=== PATIENT | female | born 1935 | race Caucasian/White ===

== ENCOUNTER 2019-04-27 00:43 | Inpatient (IN) | payer MEDICARE ==
[2019-04-27] MEDS ORDERED: Sodium Chloride 0.9% 10 ML Syringe FLUSH PRN (01:02)
[2019-04-27] MEDS: Lactated Ringers 1,000 ML IV SCH ×2 (01:38→22:40)
[2019-04-27] MEDS ORDERED: Phytonadione ORAL 2.5mg/2.5ml Soln Simple Syrup U/D PO ONE (02:29)
--- NOTE | 2019-04-27 02:31 | EDM.PDOC ---
ED HPI GENERAL MEDICAL PROBLEM - General Chief Complaint: Gastrointestinal Problem Stated Complaint: [facility] Time Seen by Provider: 04/27/19 01:01 Source of Information: Reports: Patient, RN Notes Reviewed - History of Present Illness INITIAL COMMENTS - FREE TEXT/NARRATIVE: 83 year-old female is been brought to the emergency department by [facility] for evaluation of rectal bleeding. She is reported to a first started 2 days ago. Yesterday and today there have been multiple episodes of rectal bleeding. The patient is not clear at all on exactly when this started or how many episodes. The limited information we have at this time is from [facility]. On arrival to ED she has no chest or abdominal pain. Nausea or vomiting. She does not feel weak, dizzy lightheaded or short of breath. She is on warfarin in addition to her other medications. She has history of hypertension, hyperlipidemia and dementia. - Related Data Allergies Allergy/AdvReac Type Severity Reaction Status Date / Time No Known Allergies Allergy Verified 04/27/19 00:46 Home Meds: Home Meds Albuterol [Ventolin HFA] 2 puff INH Q6H 04/27/19 [History] Cholecalciferol (Vitamin D3) [Vitamin D3] 1,000 unit PO BID 04/27/19 [History] Diltiazem HCl [Cardizem] 60 mg PO TID 04/27/19 [History] Furosemide [Lasix] 40 mg PO DAILY 04/27/19 [History] Memantine [Namenda] 10 mg PO BID 04/27/19 [History] Metoprolol Tartrate 100 mg PO BID 04/27/19 [History] Multivitamin [Daily Multiple Vitamin] 1 each PO DAILY 04/27/19 [History] Omeprazole 20 mg PO DAILY 04/27/19 [History] Potassium Chloride [Potassium Chloride Solution] 10 meq PO DAILY 04/27/19 [ History] Pravastatin [Pravachol] 20 mg PO BEDTIME 04/27/19 [History] Warfarin [Coumadin] 1.25 mg PO ASDIRECTED 04/27/19 [History] Warfarin [Coumadin] 2.5 mg PO ASDIRECTED 04/27/19 [History] Past Medical History HEENT History: Reports: None Cardiovascular History: Reports: Afib, High Cholesterol, Hypertension, PVD Respiratory History: Reports: COPD Gastrointestinal History: Reports: GERD FIN[employer]ER [employer] History: Reports: None Musculoskeletal History: Reports: None Neurological History: Reports: Alzheimers Disease Psychiatric History: Reports: Dementia Endocrine/Metabolic History: Reports: None Hematologic History: Reports: Anemia, Anticoagulation Therapy, Iron Deficiency Immunologic History: Reports: None Oncologic (Cancer) History: Reports: None Dermatologic History: Reports: None - Infectious Disease History Infectious Disease History: Reports: None - Past Surgical History GI Surgical History: Reports: Other (See Below) Other GI Surgeries/Procedures: Pt has g-tube placed due to severe protein- calorie malnutrition. Female Surgical History: Reports: Other (See Below) Other Female Surgeries/Procedures: Pt states she had one ovary removed, unsure which one. Social & Family History - Tobacco Use Smoking Status *Q: Never Smoker - Caffeine Use Caffeine Use: Reports: Coffee - Recreational Drug Use Recreational Drug Use: No ED ROS GENERAL - Review of Systems Review Of Systems: See Below Constitutional: Denies: Fever, Diaphoresis HEENT: Denies: Throat Pain Respiratory: Denies: Shortness of Breath Cardiovascular: Denies: Chest Pain GI/Abdominal: Reports: Hematochezia, Melena. Denies: Abdominal Pain, Nausea, Vomiting Musculoskeletal: Reports: No Symptoms Skin: Reports: No Symptoms Neurological: Reports: No Symptoms ED EXAM, GI/ABD - Physical Exam Exam: See Below Exam Limited By: Other (Patient does have dementia, she is not able to give an accurate history but does answer simple questions) General Appearance: Alert, No Apparent Distress Throat/Mouth: Normal Inspection, Normal Oropharynx Head: Atraumatic Neck: Supple, Other (No JVD) Respiratory/Chest: No Respiratory Distress, Lungs Clear, Normal Breath Sounds Cardiovascular: Regular Rate, Rhythm GI/Abdominal Exam: Soft, Non-Tender. No: Guarding Rectal (Female) Exam: Heme + Stool (Small amount dark maroon colored blood present, no mass or unusual tenderness palpable) Extremities: Normal Inspection. No: Leg Pain, Redness Neurological: Alert, No Motor/Sensory Deficits, Other (Mild confusion, strongly appears to have short-term memory deficit) Skin Exam: Warm, Dry, Normal Color, No Rash EKG INTERPRETATION EKG Date: 04/27/19 Rhythm: NSR [place]: Normal P-Wave: Present QRS: LBBB (Q waves present V2 and V3) Course - Vital Signs Last Recorded V/S: Last Vital Signs Temp 96.9 F 04/27/19 00:44 Pulse 82 04/27/19 00:44 Resp 16 04/27/19 00:44 BP 139/72 04/27/19 00:44 Pulse Ox 95 04/27/19 01:11 Orthostatic Blood Pressure [ 111/60 Standing] Orthostatic Blood Pressure [ 139/68 Supine] - Orders/Labs/Meds Orders: Active Orders 24 hr Category Date Time Status EKG 12 Lead [EKG Documentation Completion] [] STAT Care 04/27/19 01:11 Active Hemoccult [Fecal Occult Blood Collection] [] Care 04/27/19 01:11 Active ASDIRECTED Orthostatic Vital Signs [RC] ASDIRECTED Care 04/27/19 01:11 Active Peripheral IV Care [] . DIRECTED Care 04/27/19 01:03 Active TYPE AND SCREEN [BBK] Stat Lab 04/27/19 01:15 Received Lactated Ringers [Ringers, Lactated] 1,000 ml Med 04/27/19 01:15 Active IV ASDIRECTED Pantoprazole [ProTONIX IV] 40 mg Med 04/27/19 02:50 Active Sodium Chloride 0.9% [Normal Saline] 100 ml IV ONETIME Sodium Chloride 0.9% [Saline Flush] Med 04/27/19 01:02 Active 10 ml FLUSH ASDIRECTED PRN Peripheral IV Insertion Adult [OM.PC] Stat Oth 04/27/19 01:02 Ordered Medication Orders Lactated Ringer's (Ringers, Lactated) 1,000 mls @ 50 mls/hr IV ASDIRECTED [facility] Last Admin: 04/27/19 01:38 Dose: 50 mls/hr Pantoprazole Sodium 40 mg/ (Sodium Chloride) 100 mls @ 200 mls/hr IV ONETIME ONE Stop: 04/27/19 03:19 Sodium Chloride (Saline Flush) 10 ml FLUSH ASDIRECTED PRN PRN Reason: Keep Vein Open Last Admin: 04/27/19 01:39 Dose: 10 ml Labs: Laboratory Tests 04/27/19 04/27/19 04/27/19 Range/Units 01:15 01:15 01:15 WBC 12.97 H (3.98-10.04) K/mm3 RBC 4.44 (3.98-5.22) M/mm3 Hgb 11.6 (11.2-15.7) gm/dl Hct 38.8 (34.1-44.9) % MCV 87.4 (79.4-94.8) fl MCH 26.1 (25.6-32.2) pg MCHC 29.9 L (32.2-35.5) g/dl RDW Std Deviation 54.5 H (36.4-46.3) fL Plt Count 292 (182-369) K/mm3 MPV 10.8 (9.4-12.3) fl Neut % (Auto) 76.0 H (34.0-71.1) % Lymph % (Auto) 15.2 L (19.3-51.7) % [place] % (Auto) 6.9 (4.7-12.5) % Eos % (Auto) 1.2 (0.7-5.8) Baso % (Auto) 0.2 (0.1-1.2) % Neut # (Auto) 9.86 H (1.56-6.13) K/mm3 Lymph # (Auto) 1.97 (1.18-3.74) K/mm3 [place] # (Auto) 0.90 H (0.24-0.36) K/mm3 Eos # (Auto) 0.16 (0.04-0.36) K/mm3 Baso # (Auto) 0.02 (0.01-0.08) K/mm3 Manual Slide Review Abnormal smear PT 21.9 H (9.7-12.0) SECONDS INR 2.10 Sodium 140 (136-145) mEq/L Potassium 4.6 (3.5-5.1) mEq/L Chloride 101 (98-107) mEq/L Carbon Dioxide 36 H (21-32) mEq/L Anion Gap 7.6 (5-15) BUN 45 H (7-18) mg/dL Creatinine 1.1 H (0.55-1.02) mg/dL Est Cr Clr Drug Dosing 28.32 mL/min Estimated GFR (MDRD) 48 (>60) mL/min BUN/Creatinine Ratio 40.9 H (14-18) Glucose 112 (83-115) mg/dL Calcium 9.4 (8.5-10.1) mg/dL Total Bilirubin 0.3 (0.2-1.0) mg/dL AST 15 (15-37) U/L ALT 23 (14-59) U/L Alkaline Phosphatase 135 H (46-116) U/L Total Protein 7.2 (6.4-8.2) g/dl Albumin 2.8 L (3.4-5.0) g/dl Globulin 4.4 gm/dL Albumin/Globulin Ratio 0.6 L (1-2) Meds: Medications Generic Name Dose Route Start Last Admin Trade Name Freq PRN Reason Stop Dose Admin Lactated Ringer's 1,000 mls @ 50 mls/hr 04/27/19 01:15 04/27/19 01:38 Ringers, Lactated IV 50 mls/hr ASDIRECTED ANIA Administration Pantoprazole Sodium 40 mg/ 100 mls @ 200 mls/hr 04/27/19 02:50 Sodium Chloride IV 04/27/19 03:19 ONETIME ONE Sodium Chloride 10 ml 04/27/19 01:02 04/27/19 01:39 Saline Flush FLUSH 10 ml ASDIRECTED PRN Administration Keep Vein Open Discontinued Medications Generic Name Dose Route Start Last Admin Trade Name Freq PRN Reason Stop Dose Admin Phytonadione 5 mg 04/27/19 02:29 04/27/19 02:51 Aquamephyton PO 04/27/19 02:30 5 mg ONETIME ONE Administration - Re-Assessments/Exams Free Text/Narrative Re-Assessment/Exam: 04/27/19 02:42. Hemoglobin is come back at 11.6, INR is 2.10. Creatinine 1.1, potassium 4.6, other chemistries relatively normal. She has been resting comfortably. Blood pressures been running in the 120s and 130s systolic. We did check orthosis and her blood pressure did drop from 1 3968 lying to 111/60 standing heart rate increased from 82 lying to 87 standing. As noted on rectal exam was dark maroon colored blood. She did have one episode shortly after arrival but nothing further. She is resting comfortably with no pain or other apparent distress. Looking at her [facility] records she is DNR/DNI. Will admit to Med Surg Telemetry for further eval and treatment. Protonix 40 mg IV has been ordered along with Vit K 5 mg PO. Type and screen also ordered with initial labs. Departure - Departure Time of Disposition: 02:46 Disposition: Admitted As Inpatient 67 Condition: Serious Clinical Impression: Rectal bleeding, Elevated INR - Discharge Information Referrals: Dakota Huertas MD [Primary Care Provider] - Forms: ED Department Discharge - My Orders Last 24 Hours: My Active Orders 04/27/19 01:02 Sodium Chloride 0.9% [Saline Flush] 10 ml FLUSH ASDIRECTED PRN Peripheral IV Insertion Adult [OM.PC] Stat 04/27/19 01:03 Peripheral IV Care [RC] . DIRECTED 04/27/19 01:11 EKG 12 Lead [EKG Documentation Completion] [RC] STAT Hemoccult [Fecal Occult Blood Collection] [RC] ASDIRECTED Orthostatic Vital Signs [RC] ASDIRECTED 04/27/19 01:15 TYPE AND SCREEN [BBK] Stat Lactated Ringers [Ringers, Lactated] 1,000 ml IV ASDIRECTED 04/27/19 02:50 Pantoprazole [ProTONIX IV] 40 mg Sodium Chloride 0.9% [Normal Saline] 100 ml IV ONETIME - Assessment/Plan Last 24 Hours: My Active Orders 04/27/19 01:02 Sodium Chloride 0.9% [Saline Flush] 10 ml FLUSH ASDIRECTED PRN Peripheral IV Insertion Adult [OM.PC] Stat 04/27/19 01:03 Peripheral IV Care [RC] . DIRECTED 04/27/19 01:11 EKG 12 Lead [EKG Documentation Completion] [RC] STAT Hemoccult [Fecal Occult Blood Collection] [RC] ASDIRECTED Orthostatic Vital Signs [RC] ASDIRECTED 04/27/19 01:15 TYPE AND SCREEN [BBK] Stat Lactated Ringers [Ringers, Lactated] 1,000 ml IV ASDIRECTED 04/27/19 02:50 Pantoprazole [ProTONIX IV] 40 mg Sodium Chloride 0.9% [Normal Saline] 100 ml IV ONETIME
[2019-04-27] MEDS ORDERED: Pantoprazole 40 MG in Sodium Chloride 0.9% 100 ML IV ONE (02:50)
[2019-04-27] MEDS ORDERED: Pantoprazole 40 MG Vial IVPUSH ONE (07:00)
--- NOTE | 2019-04-27 07:49 | PCM.HP.2 ---
H&P History of Present Illness - General Date of Service: 04/27/19 Admit Problem/Dx: Admission Diagnosis/Problem Admission Diagnosis/Problem Rectal hemorrhage Source of Information: Patient, Old Records, Provider, RN Notes Reviewed History Limitations: Reports: Altered Mental Status - History of Present Illness Initial Comments - Free Text/Narative: This is an 83 yo elderly white female with past medical hx/o HTN, HLD, PVD, COPD , GERD, Alzheimer's Disease, and Malnutrition S/p G-Tube Placement who came in to ED last night due to 2 day hx/o GI bleed. She has had multiple episode of rectal bleeding yesterday. Per secondary sources, she has no associated symptoms. She denies any hx/o hemorrhoids, diverticulosis or GI bleed in the past. She denies having been scope in the past. She carries a hx/o CHERELLE and she takes Warfarin for atrial fibrillation. Patient is a poor historian. HPI was obtained from combination of multiple sources. Her initial work up in ED last night showed a CBC remarkable for WBC of 12.97, MCHC of 29.9, RDW of 54.5, Neutrophils of 79% and Lymphocytes of 15.2%. Her INR was 2.10. Her Chemistry was significant for CO2 of 36, BUN of 45, Cr of 1.1, Alk Phos of 135, and Albumin of 2.8. She was admitted overnight for further work up of GI Bleed. - Related Data Allergies/Adverse Reactions: Allergies Allergy/AdvReac Type Severity Reaction Status Date / Time No Known Allergies Allergy Verified 04/27/19 00:46 Home Medications: Home Meds Albuterol [Ventolin HFA] 2 puff INH Q6H 04/27/19 [History] Cholecalciferol (Vitamin D3) [Vitamin D3] 1,000 unit PO BID 04/27/19 [History] Diltiazem HCl [Cardizem] 60 mg PO TID 04/27/19 [History] Furosemide [Lasix] 40 mg PO DAILY 04/27/19 [History] Lactose-Reduced Food/Fiber [Isosource 1.5 [place] Tube Feed] 04/27/19 [History] Memantine [Namenda] 10 mg PO BID 04/27/19 [History] Metoprolol Tartrate 1.5 tab PO BID 04/27/19 [History] Multivitamin [Daily Multiple Vitamin] 1 each PO DAILY 04/27/19 [History] Omeprazole 20 mg PO DAILY 04/27/19 [History] Potassium Chloride [Potassium Chloride Solution] 10 meq PO DAILY 04/27/19 [ History] Pravastatin [Pravachol] 20 mg PO BEDTIME 04/27/19 [History] Warfarin [Coumadin] 1.25 mg PO ASDIRECTED 04/27/19 [History] Warfarin [Coumadin] 2.5 mg PO ASDIRECTED 04/27/19 [History] Past Medical History HEENT History: Reports: None Cardiovascular History: Reports: Afib, High Cholesterol, Hypertension, PVD Respiratory History: Reports: COPD Gastrointestinal History: Reports: GERD 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 Musculoskeletal History: Reports: None Neurological History: Reports: Alzheimers Disease Psychiatric History: Reports: Dementia Endocrine/Metabolic History: Reports: None Hematologic History: Reports: Anemia, Anticoagulation Therapy, Iron Deficiency Immunologic History: Reports: None Oncologic (Cancer) History: Reports: None Dermatologic History: Reports: None - Infectious Disease History Infectious Disease History: Reports: None - Past Surgical History GI Surgical History: Reports: Other (See Below) Other GI Surgeries/Procedures: Pt has g-tube placed due to severe protein- calorie malnutrition. Female Surgical History: Reports: Other (See Below) Other Female Surgeries/Procedures: Pt states she had one ovary removed, unsure which one. Social & Family History - Family History Family Medical History: Noncontributory - Tobacco Use Smoking Status *Q: Never Smoker - Caffeine Use Caffeine Use: Reports: Coffee - Recreational Drug Use Recreational Drug Use: No H&P Review of Systems - Review of Systems: Review Of Systems: ROS reveals no pertinent complaints other than HPI. Exam - Exam Exam: See Below - Vital Signs Vital Signs: Last Vital Signs Temp 36.2 C 04/27/19 03:34 Pulse 79 04/27/19 04:02 Resp 20 04/27/19 03:34 BP 129/63 04/27/19 03:34 Pulse Ox 87 L 04/27/19 06:25 Orthostatic Blood Pressure [ 111/60 Standing] Orthostatic Blood Pressure [ 139/68 Supine] Weight: 59.829 kg - Exam General: Alert, Cooperative, Mild Distress HEENT: Conjunctiva Clear, EACs Clear, Hearing Intact, Mucosa Moist & [place], Nares Patent, Posterior Pharynx Clear, Pupils Equal Neck: Supple, Trachea Midline Lungs: Normal Respiratory Effort, Decreased Breath Sounds Cardiovascular: Regular Rate, Regular Rhythm GI/Abdominal Exam: Normal Bowel Sounds, Soft, Non-Tender, No Organomegaly, No Distention, No Abnormal Bruit, Other (gastric tube) (Female) Exam: Deferred Rectal (Female) Exam: Deferred Back Exam: Normal Inspection, Decreased Range of Motion Extremities: Normal Inspection, Normal Range of Motion, Non-Tender, No Pedal Edema, Normal Capillary Refill Peripheral Pulses: 2+: Posterior Tibial (L), Posterior Tibial (R), Dorsalis Pedis (L), Dorsalis Pedis (R) Skin: Warm, Dry, Intact Neuro Extensive - Mental Status: Normal Cognition Neuro Extensive - Motor, Sensory, Reflexes: CN II-XII Intact (limited but grossly intact), Abnormal Gait Psychiatric: Alert, Normal Affect, Normal Mood - Patient Data Lab Results Last 24 hrs: Laboratory Results - last 24 hr 04/27/19 04/27/19 04/27/19 Range/Units 01:15 01:15 01:15 WBC 12.97 H (3.98-10.04) K/mm3 RBC 4.44 (3.98-5.22) M/mm3 Hgb 11.6 (11.2-15.7) gm/dl Hct 38.8 (34.1-44.9) % MCV 87.4 (79.4-94.8) fl MCH 26.1 (25.6-32.2) pg MCHC 29.9 L (32.2-35.5) g/dl RDW Std Deviation 54.5 H (36.4-46.3) fL Plt Count 292 (182-369) K/mm3 MPV 10.8 (9.4-12.3) fl Neut % (Auto) 76.0 H (34.0-71.1) % Lymph % (Auto) 15.2 L (19.3-51.7) % [place] % (Auto) 6.9 (4.7-12.5) % Eos % (Auto) 1.2 (0.7-5.8) Baso % (Auto) 0.2 (0.1-1.2) % Neut # (Auto) 9.86 H (1.56-6.13) K/mm3 Lymph # (Auto) 1.97 (1.18-3.74) K/mm3 [place] # (Auto) 0.90 H (0.24-0.36) K/mm3 Eos # (Auto) 0.16 (0.04-0.36) K/mm3 Baso # (Auto) 0.02 (0.01-0.08) K/mm3 Manual Slide Review Abnormal smear PT 21.9 H (9.7-12.0) SECONDS INR 2.10 Sodium 140 (136-145) mEq/L Potassium 4.6 (3.5-5.1) mEq/L Chloride 101 (98-107) mEq/L Carbon Dioxide 36 H (21-32) mEq/L Anion Gap 7.6 (5-15) BUN 45 H (7-18) mg/dL Creatinine 1.1 H (0.55-1.02) mg/dL Est Cr Clr Drug Dosing 28.32 mL/min Estimated GFR (MDRD) 48 (>60) mL/min BUN/Creatinine Ratio 40.9 H (14-18) Glucose 112 (83-115) mg/dL Calcium 9.4 (8.5-10.1) mg/dL Total Bilirubin 0.3 (0.2-1.0) mg/dL AST 15 (15-37) U/L ALT 23 (14-59) U/L Alkaline Phosphatase 135 H (46-116) U/L Total Protein 7.2 (6.4-8.2) g/dl Albumin 2.8 L (3.4-5.0) g/dl Globulin 4.4 gm/dL Albumin/Globulin Ratio 0.6 L (1-2) MRSA (PCR) 04/27/19 Range/Units 04:13 WBC (3.98-10.04) K/mm3 RBC (3.98-5.22) M/mm3 Hgb (11.2-15.7) gm/dl Hct (34.1-44.9) % MCV (79.4-94.8) fl MCH (25.6-32.2) pg MCHC (32.2-35.5) g/dl RDW Std Deviation (36.4-46.3) fL Plt Count (182-369) K/mm3 MPV (9.4-12.3) fl Neut % (Auto) (34.0-71.1) % Lymph % (Auto) (19.3-51.7) % [place] % (Auto) (4.7-12.5) % Eos % (Auto) (0.7-5.8) Baso % (Auto) (0.1-1.2) % Neut # (Auto) (1.56-6.13) K/mm3 Lymph # (Auto) (1.18-3.74) K/mm3 [place] # (Auto) (0.24-0.36) K/mm3 Eos # (Auto) (0.04-0.36) K/mm3 Baso # (Auto) (0.01-0.08) K/mm3 Manual Slide Review PT (9.7-12.0) SECONDS INR Sodium (136-145) mEq/L Potassium (3.5-5.1) mEq/L Chloride (98-107) mEq/L Carbon Dioxide (21-32) mEq/L Anion Gap (5-15) BUN (7-18) mg/dL Creatinine (0.55-1.02) mg/dL Est Cr Clr Drug Dosing mL/min Estimated GFR (MDRD) (>60) mL/min BUN/Creatinine Ratio (14-18) Glucose (83-115) mg/dL Calcium (8.5-10.1) mg/dL Total Bilirubin (0.2-1.0) mg/dL AST (15-37) U/L ALT (14-59) U/L Alkaline Phosphatase (46-116) U/L Total Protein (6.4-8.2) g/dl Albumin (3.4-5.0) g/dl Globulin gm/dL Albumin/Globulin Ratio (1-2) MRSA (PCR) Negative Result Diagrams: 04/28/19 10:05 04/28/19 05:10 EKG INTERPRETATION EKG Date: 04/27/19 Rhythm: NSR [place]: Normal P-Wave: Present QRS: LBBB EKG Interpretation Comments: Q waves in leads V2-V3 Problem List Initiated/Reviewed/Updated: Yes Orders Last 24hrs: Active Orders 24 hr Category Date Time Status Admission Status [Patient Status] [ADT] Routine ADT 04/27/19 03:07 Active Orthostatic Vital Signs [RC] ASDIRECTED Care 04/27/19 01:11 Active Oxygen Therapy [RC] ASDIRECTED Care 04/27/19 06:25 Active Peripheral IV Care [RC] Q2H Care 04/27/19 01:03 Active Up With Assistance [RC] ASDIRECTED Care 04/27/19 04:37 Active NPO [Nothing Per Oral Diet] [DIET] Diet 04/27/19 Breakfast Active TYPE AND SCREEN [BBK] Stat Lab 04/27/19 01:15 Received Lactated Ringers [Ringers, Lactated] 1,000 ml Med 04/27/19 01:15 Active IV ASDIRECTED Sodium Chloride 0.9% [Saline Flush] Med 04/27/19 01:02 Active 10 ml FLUSH ASDIRECTED PRN Peripheral IV Insertion Adult [OM.PC] Stat Oth 04/27/19 01:02 Ordered Code Status [Resuscitation Status] Routine Resus Stat 04/27/19 04:36 Ordered Medication Orders Lactated Ringer's (Ringers, Lactated) 1,000 mls @ 50 mls/hr IV ASDIRECTED ANIA Last Admin: 04/27/19 01:38 Dose: 50 mls/hr Sodium Chloride (Saline Flush) 10 ml FLUSH ASDIRECTED PRN PRN Reason: Keep Vein Open Last Admin: 04/27/19 01:39 Dose: 10 ml Assessment/Plan Comment:: Assessment: Acute: Rectal Bleeding - Started a couple of days ago - Had multiple episodes yesterday - No hx/o hematemesis, GI Bleed in the past, Hemorrhoids or Diverticulosis - No endoscopy in the past--> patient is a poor historian - Last GI Bleed: this morning with maroon colored stool - On Warfarin due to PAFIB - Hgb is 11.6 - INR is 2.10 and was given low dose of Vit K in ED - Hold warfarin and will consult general surgery - H/H Q6H Mild Renal Insufficiency - BUN of 45 and Cr of 1.1 - Likely from rectal bleed - Monitor Chronic: HTN, HLD, PVD, COPD, PAFIB, GERD, CHERELLE, Alzheimer's Disease, Malnutrition S/p G-Tube Placement Plan: Admitted overnight to [facility] Resume Home Meds NPO until after GS eval IV Hydration DVT/GI Prophylaxis Fall Precautions Dr. Guerra consult SW/CM for D/c planning Daily INR Code Status: DNR/DNI Additional orders as above - Mortality Measure Prognosis:: Good
[2019-04-27] MEDS ORDERED: Acetaminophen/HYDROcodone 325-5 MG Tab PO PRN (08:45)
[2019-04-27] MEDS ORDERED: Albuterol/Ipratropium 3.0-0.5 MG/3 ML Neb Soln NEB PRN (08:45)
[2019-04-27] MEDS ORDERED: Docusate Sodium 100 MG Cap PO PRN (08:45)
[2019-04-27] MEDS ORDERED: Promethazine 6.25 MG in Sodium Chloride 0.9% 50 ML IV PRN (08:45)
[2019-04-27] MEDS ORDERED: Polyethylene Glycol 3350 Powder 17 GM Packet PO PRN (08:45)
[2019-04-27] MEDS ORDERED: Albuterol 6.7 GM Inhaler INH PRN (08:45)
[2019-04-27] MEDS ORDERED: Acetaminophen 325 MG Tab PO PRN (08:45)
[2019-04-27] MEDS ORDERED: Bisacodyl 5 MG Tab PO PRN (08:45)
[2019-04-27] MEDS ORDERED: Pantoprazole 40 MG Vial IV SCH (09:00)
[2019-04-27] MEDS ORDERED: Pantoprazole 40 MG Tab.CR PO SCH (09:00)
[2019-04-27] MEDS: Potassium Chloride 10% 20 MEQ/15 ML Soln 15 ML UD Cup PO SCH (10:51)
[2019-04-27] MEDS: Metoprolol Tartrate 100 MG Tab PO SCH ×2 (10:52→21:16)
[2019-04-27] MEDS: Furosemide 40 MG Tab PO SCH (10:52)
[2019-04-27] MEDS: Cholecalciferol (Vitamin D3) 25 MCG Tab PO SCH ×2 (10:55→21:14)
[2019-04-27] MEDS: Multivitamins,Therapeutic Tab PO SCH (10:55)
[2019-04-27] MEDS: Pantoprazole 40 MG Vial IVPUSH SCH ×2 (10:57→21:11)
[2019-04-27] MEDS: Diltiazem IR 60 MG Tab PO SCH ×3 (10:58→21:15)
[2019-04-27] MEDS ORDERED: Sodium Chloride 0.9% 250 ML ONE ×2 (11:26→22:09)
--- NOTE | 2019-04-27 11:46 | PCM.CONS ---
H&P History of Present Illness - General Date of Service: 04/27/19 Admit Problem/Dx: Admission Diagnosis/Problem Admission Diagnosis/Problem Rectal hemorrhage Source of Information: Old Records, Provider, RN History Limitations: Reports: Altered Mental Status - History of Present Illness Initial Comments - Free Text/Narative: I was asked in consultation to evaluate the patient for rectal bleeding. The patient is on Warfarin for Afib and was noted to have Dark colored bloody stool 3 days ago. She had two more similar stools and was transferred to the hospital on 04/26. Stool are dark blood. She had dementia and therefore a poor historian but per report she had been otherwise without any abdominal complaints. The patient has a degree of dysphagia and had a YAMIL button G-tube for feeds. She had had prior abdominal laparotomy, she is unsure what was done. In the ED she had another bloody bowel movement and one more overnight. Her vitals have been otherwise stable with Hgb on 11.6 and INR of 2.1 on 04/26 at 0330. Per report from Dr. Bond, the patient received a dose of Vit K. Onset of Symptoms: Reports: Unknown/Unsure Duration of Symptoms: Reports: Day(s): (3) Location: Reports: Other (rectum) Quality: Reports: Same as Previous Episode Severity: Moderate Improves with: Reports: None Worsens with: Reports: None Associated Symptoms: Reports: No Other Symptoms - Related Data Allergies/Adverse Reactions: Allergies Allergy/AdvReac Type Severity Reaction Status Date / Time No Known Allergies Allergy Verified 04/27/19 00:46 Home Medications: Home Meds Albuterol [Ventolin HFA] 2 puff INH Q6H 04/27/19 [History] Cholecalciferol (Vitamin D3) [Vitamin D3] 1,000 unit PO BID 04/27/19 [History] Diltiazem HCl [Cardizem] 60 mg PO TID 04/27/19 [History] Furosemide [Lasix] 40 mg PO DAILY 04/27/19 [History] Lactose-Reduced Food/Fiber [Isosource 1.5 Carrillo Tube Feed] 04/27/19 [History] Memantine [Namenda] 10 mg PO BID 04/27/19 [History] Metoprolol Tartrate 1.5 tab PO BID 04/27/19 [History] Multivitamin [Daily Multiple Vitamin] 1 each PO DAILY 04/27/19 [History] Omeprazole 20 mg PO DAILY 04/27/19 [History] Potassium Chloride [Potassium Chloride Solution] 10 meq PO DAILY 04/27/19 [ History] Pravastatin [Pravachol] 20 mg PO BEDTIME 04/27/19 [History] Warfarin [Coumadin] 1.25 mg PO ASDIRECTED 04/27/19 [History] Warfarin [Coumadin] 2.5 mg PO ASDIRECTED 04/27/19 [History] Past Medical History HEENT History: Reports: None Cardiovascular History: Reports: Afib, High Cholesterol, Hypertension, PVD Respiratory History: Reports: COPD Gastrointestinal History: Reports: GERD 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 Musculoskeletal History: Reports: None Neurological History: Reports: Alzheimers Disease Psychiatric History: Reports: Dementia Endocrine/Metabolic History: Reports: None Hematologic History: Reports: Anemia, Anticoagulation Therapy, Iron Deficiency Immunologic History: Reports: None Oncologic (Cancer) History: Reports: None Dermatologic History: Reports: None - Infectious Disease History Infectious Disease History: Reports: None - Past Surgical History GI Surgical History: Reports: Other (See Below) Other GI Surgeries/Procedures: Pt has g-tube placed due to severe protein- calorie malnutrition. Female Surgical History: Reports: Other (See Below) Other Female Surgeries/Procedures: Pt states she had one ovary removed, unsure which one. Social & Family History - Family History Family Medical History: Noncontributory - Tobacco Use Smoking Status *Q: Never Smoker - Caffeine Use Caffeine Use: Reports: Coffee - Recreational Drug Use Recreational Drug Use: No H&P Review of Systems - Review of Systems: Review Of Systems: See Below Free Text/Narrative: Patient unable to provide reliable ROS due to altered mental status Exam - Exam Exam: See Below - Vital Signs Vital Signs: Last Vital Signs Temp 97.0 F 04/27/19 09:10 Pulse 95 04/27/19 10:52 Resp 18 04/27/19 09:10 BP 129/62 04/27/19 10:52 Pulse Ox 98 04/27/19 09:10 Orthostatic Blood Pressure [ 111/60 Standing] Orthostatic Blood Pressure [ 139/68 Supine] Weight: 59.829 kg - Exam Quality Assessment: Supplemental Oxygen General: Alert, Cooperative, Other (Not oriented and does not know where she is or why she is here) HEENT: Conjunctiva Clear Lungs: Clear to Auscultation, Normal Respiratory Effort Cardiovascular: Regular Rate, Regular Rhythm, Normal S1, Normal S2 GI/Abdominal Exam: Normal Bowel Sounds, Soft, No Organomegaly, No Distention, No Mass, Pelvis Stable, Other (mild tednerness on the left lower quadrant) (Female) Exam: Deferred Rectal (Female) Exam: Normal Rectal Tone, Bloody Stool, Hemorrhoids (None) - Patient Data Lab Results Last 24 hrs: Laboratory Results - last 24 hr 04/27/19 04/27/19 04/27/19 Range/Units 01:15 01:15 01:15 WBC 12.97 H (3.98-10.04) K/mm3 RBC 4.44 (3.98-5.22) M/mm3 Hgb 11.6 (11.2-15.7) gm/dl Hct 38.8 (34.1-44.9) % MCV 87.4 (79.4-94.8) fl MCH 26.1 (25.6-32.2) pg MCHC 29.9 L (32.2-35.5) g/dl RDW Std Deviation 54.5 H (36.4-46.3) fL Plt Count 292 (182-369) K/mm3 MPV 10.8 (9.4-12.3) fl Neut % (Auto) 76.0 H (34.0-71.1) % Lymph % (Auto) 15.2 L (19.3-51.7) % [place] % (Auto) 6.9 (4.7-12.5) % Eos % (Auto) 1.2 (0.7-5.8) Baso % (Auto) 0.2 (0.1-1.2) % Neut # (Auto) 9.86 H (1.56-6.13) K/mm3 Lymph # (Auto) 1.97 (1.18-3.74) K/mm3 [place] # (Auto) 0.90 H (0.24-0.36) K/mm3 Eos # (Auto) 0.16 (0.04-0.36) K/mm3 Baso # (Auto) 0.02 (0.01-0.08) K/mm3 Manual Slide Review Abnormal smear PT 21.9 H (9.7-12.0) SECONDS INR 2.10 Sodium 140 (136-145) mEq/L Potassium 4.6 (3.5-5.1) mEq/L Chloride 101 (98-107) mEq/L Carbon Dioxide 36 H (21-32) mEq/L Anion Gap 7.6 (5-15) BUN 45 H (7-18) mg/dL Creatinine 1.1 H (0.55-1.02) mg/dL Est Cr Clr Drug Dosing 28.32 mL/min Estimated GFR (MDRD) 48 (>60) mL/min BUN/Creatinine Ratio 40.9 H (14-18) Glucose 112 (83-115) mg/dL Calcium 9.4 (8.5-10.1) mg/dL Total Bilirubin 0.3 (0.2-1.0) mg/dL AST 15 (15-37) U/L ALT 23 (14-59) U/L Alkaline Phosphatase 135 H (46-116) U/L Total Protein 7.2 (6.4-8.2) g/dl Albumin 2.8 L (3.4-5.0) g/dl Globulin 4.4 gm/dL Albumin/Globulin Ratio 0.6 L (1-2) MRSA (PCR) Blood Type Gel Antibody Screen 04/27/19 04/27/19 04/27/19 Range/Units 01:15 04:13 09:20 WBC (3.98-10.04) K/mm3 RBC (3.98-5.22) M/mm3 Hgb (11.2-15.7) gm/dl Hct (34.1-44.9) % MCV (79.4-94.8) fl MCH (25.6-32.2) pg MCHC (32.2-35.5) g/dl RDW Std Deviation (36.4-46.3) fL Plt Count (182-369) K/mm3 MPV (9.4-12.3) fl Neut % (Auto) (34.0-71.1) % Lymph % (Auto) (19.3-51.7) % [place] % (Auto) (4.7-12.5) % Eos % (Auto) (0.7-5.8) Baso % (Auto) (0.1-1.2) % Neut # (Auto) (1.56-6.13) K/mm3 Lymph # (Auto) (1.18-3.74) K/mm3 [place] # (Auto) (0.24-0.36) K/mm3 Eos # (Auto) (0.04-0.36) K/mm3 Baso # (Auto) (0.01-0.08) K/mm3 Manual Slide Review PT 23.7 H (9.7-12.0) SECONDS INR 2.28 Sodium (136-145) mEq/L Potassium (3.5-5.1) mEq/L Chloride (98-107) mEq/L Carbon Dioxide (21-32) mEq/L Anion Gap (5-15) BUN (7-18) mg/dL Creatinine (0.55-1.02) mg/dL Est Cr Clr Drug Dosing mL/min Estimated GFR (MDRD) (>60) mL/min BUN/Creatinine Ratio (14-18) Glucose (83-115) mg/dL Calcium (8.5-10.1) mg/dL Total Bilirubin (0.2-1.0) mg/dL AST (15-37) U/L ALT (14-59) U/L Alkaline Phosphatase (46-116) U/L Total Protein (6.4-8.2) g/dl Albumin (3.4-5.0) g/dl Globulin gm/dL Albumin/Globulin Ratio (1-2) MRSA (PCR) Negative Blood Type A POSITIVE Gel Antibody Screen Negative 04/27/19 Range/Units 11:18 WBC (3.98-10.04) K/mm3 RBC (3.98-5.22) M/mm3 Hgb 10.7 L (11.2-15.7) gm/dl Hct 36.0 (34.1-44.9) % MCV (79.4-94.8) fl MCH (25.6-32.2) pg MCHC (32.2-35.5) g/dl RDW Std Deviation (36.4-46.3) fL Plt Count (182-369) K/mm3 MPV (9.4-12.3) fl Neut % (Auto) (34.0-71.1) % Lymph % (Auto) (19.3-51.7) % [place] % (Auto) (4.7-12.5) % Eos % (Auto) (0.7-5.8) Baso % (Auto) (0.1-1.2) % Neut # (Auto) (1.56-6.13) K/mm3 Lymph # (Auto) (1.18-3.74) K/mm3 [place] # (Auto) (0.24-0.36) K/mm3 Eos # (Auto) (0.04-0.36) K/mm3 Baso # (Auto) (0.01-0.08) K/mm3 Manual Slide Review PT (9.7-12.0) SECONDS INR Sodium (136-145) mEq/L Potassium (3.5-5.1) mEq/L Chloride (98-107) mEq/L Carbon Dioxide (21-32) mEq/L Anion Gap (5-15) BUN (7-18) mg/dL Creatinine (0.55-1.02) mg/dL Est Cr Clr Drug Dosing mL/min Estimated GFR (MDRD) (>60) mL/min BUN/Creatinine Ratio (14-18) Glucose (83-115) mg/dL Calcium (8.5-10.1) mg/dL Total Bilirubin (0.2-1.0) mg/dL AST (15-37) U/L ALT (14-59) U/L Alkaline Phosphatase (46-116) U/L Total Protein (6.4-8.2) g/dl Albumin (3.4-5.0) g/dl Globulin gm/dL Albumin/Globulin Ratio (1-2) MRSA (PCR) Blood Type Gel Antibody Screen Result Diagrams: 04/27/19 11:18 04/27/19 01:15 Consult PN Assessment/Plan Problem List Initiated/Reviewed/Updated: No My Orders Last 24 Hours: My Active Orders 04/27/19 09:57 Transfuse Fresh Frozen Plasma [COMM] Routine 04/27/19 10:00 Pantoprazole [ProTONIX IV] 40 mg IVPUSH Q12H Plan: Rectal bleeding: YAMIL tube aspirated and aspirate was clear, low suspicion for UGI bleeding. Rectal exam showed dark blood. Plan - Continue Q6hr H/H - Start Q6hr or Q8hr INR - Administer 2 U FFP to normalize INR - 40 mg IV protonix BID - Continue fluid resuscitation I anticipate that the bleeding may stop once INR normalizes. We will continue to monitor closely.
[2019-04-27] MEDS: Simvastatin 10 MG Tab PO SCH (21:14)
[2019-04-27] MEDS ORDERED: Sodium Chloride 0.9% 250 ML IV SCH (22:15)
[2019-04-28] MEDS ORDERED: Polyethylene Glycol/Electrolytes 4,000 ML Bottle PO ONE
--- NOTE | 2019-04-28 07:50 | PCM.PN ---
- General Info Date of Service: 04/28/19 Admission Dx/Problem (Free Text): Admission Diagnosis/Problem Admission Diagnosis/Problem Rectal hemorrhage Subjective Update: Follow up Functional Status: Reports: Pain Controlled, Tolerating Diet, Urinating - Review of Systems General: Denies: Fever, Weakness, Fatigue, Malaise, Chills HEENT: Reports: No Symptoms Pulmonary: Denies: Shortness of Breath Cardiovascular: Denies: Chest Pain, Dyspnea on Exertion, Lightheadedness Gastrointestinal: Denies: Abdominal Pain, Difficulty Swallowing, Flatus, Nausea Genitourinary: Reports: No Symptoms Musculoskeletal: Reports: No Symptoms Skin: Reports: No Symptoms Neurological: Denies: Confusion, Difficulty Walking, Weakness, Gait Disturbance Psychiatric: Denies: Depression, Anxiety, Agitation, Hallucinations Systems Review Comment:: No overnight or acute issues. No rectal bleeding reported. Hgb is 8.9 this morning with an INR of 1.29. - Patient Data Vitals - Most Recent: Last Vital Signs Temp 36.1 C 04/28/19 05:03 Pulse 98 04/28/19 05:03 Resp 20 04/28/19 05:03 BP 124/52 L 04/28/19 05:03 Pulse Ox 95 04/28/19 05:03 Orthostatic Blood Pressure [ 111/60 Standing] Orthostatic Blood Pressure [ 139/68 Supine] Weight - Most Recent: 60.056 kg I&O - Last 24 Hours: Intake & Output 04/27/19 04/28/19 04/28/19 22:59 06:59 14:59 Intake Total 610 1005 Output Total 300 Balance 610 705 Lab Results Last 24 Hours: Laboratory Results - last 24 hr 04/27/19 04/27/19 04/27/19 Range/Units 01:15 09:20 11:18 Hgb 10.7 L (11.2-15.7) gm/dl Hct 36.0 (34.1-44.9) % PT 23.7 H (9.7-12.0) SECONDS INR 2.28 Sodium (136-145) mEq/L Potassium (3.5-5.1) mEq/L Chloride (98-107) mEq/L Carbon Dioxide (21-32) mEq/L Anion Gap (5-15) BUN (7-18) mg/dL Creatinine (0.55-1.02) mg/dL Est Cr Clr Drug Dosing mL/min Estimated GFR (MDRD) (>60) mL/min BUN/Creatinine Ratio (14-18) Glucose (83-115) mg/dL Calcium (8.5-10.1) mg/dL Magnesium (1.8-2.4) mg/dl Blood Type A POSITIVE Gel Antibody Screen Negative 04/27/19 04/27/19 04/27/19 Range/Units 15:30 15:30 17:08 Hgb 9.6 L (11.2-15.7) gm/dl Hct 33.1 L (34.1-44.9) % PT 17.7 H (9.7-12.0) SECONDS INR 1.67 Sodium 142 (136-145) mEq/L Potassium 4.1 (3.5-5.1) mEq/L Chloride 101 (98-107) mEq/L Carbon Dioxide 35 H (21-32) mEq/L Anion Gap 10.1 (5-15) BUN 42 H (7-18) mg/dL Creatinine 1.0 (0.55-1.02) mg/dL Est Cr Clr Drug Dosing 31.15 mL/min Estimated GFR (MDRD) 53 (>60) mL/min BUN/Creatinine Ratio 42.0 H (14-18) Glucose 114 (83-115) mg/dL Calcium 9.2 (8.5-10.1) mg/dL Magnesium 2.1 (1.8-2.4) mg/dl Blood Type Gel Antibody Screen 04/27/19 04/27/19 04/27/19 Range/Units 17:08 23:05 23:05 Hgb 8.4 L (11.2-15.7) gm/dl Hct 29.1 L (34.1-44.9) % PT 17.0 H 14.8 H (9.7-12.0) SECONDS INR 1.60 1.38 Sodium (136-145) mEq/L Potassium (3.5-5.1) mEq/L Chloride (98-107) mEq/L Carbon Dioxide (21-32) mEq/L Anion Gap (5-15) BUN (7-18) mg/dL Creatinine (0.55-1.02) mg/dL Est Cr Clr Drug Dosing mL/min Estimated GFR (MDRD) (>60) mL/min BUN/Creatinine Ratio (14-18) Glucose (83-115) mg/dL Calcium (8.5-10.1) mg/dL Magnesium (1.8-2.4) mg/dl Blood Type Gel Antibody Screen 04/28/19 04/28/19 04/28/19 Range/Units 02:04 05:10 05:10 Hgb 8.9 L (11.2-15.7) gm/dl Hct 30.9 L (34.1-44.9) % PT 14.6 H (9.7-12.0) SECONDS INR 1.36 Sodium 146 H (136-145) mEq/L Potassium 3.6 (3.5-5.1) mEq/L Chloride 102 (98-107) mEq/L Carbon Dioxide 36 H (21-32) mEq/L Anion Gap 11.6 (5-15) BUN 37 H (7-18) mg/dL Creatinine 1.0 (0.55-1.02) mg/dL Est Cr Clr Drug Dosing 31.15 mL/min Estimated GFR (MDRD) 53 (>60) mL/min BUN/Creatinine Ratio 37.0 H (14-18) Glucose 102 (83-115) mg/dL Calcium 8.9 (8.5-10.1) mg/dL Magnesium 2.1 (1.8-2.4) mg/dl Blood Type Gel Antibody Screen 04/28/19 Range/Units 05:10 Hgb (11.2-15.7) gm/dl Hct (34.1-44.9) % PT 13.9 H (9.7-12.0) SECONDS INR 1.29 Sodium (136-145) mEq/L Potassium (3.5-5.1) mEq/L Chloride (98-107) mEq/L Carbon Dioxide (21-32) mEq/L Anion Gap (5-15) BUN (7-18) mg/dL Creatinine (0.55-1.02) mg/dL Est Cr Clr Drug Dosing mL/min Estimated GFR (MDRD) (>60) mL/min BUN/Creatinine Ratio (14-18) Glucose (83-115) mg/dL Calcium (8.5-10.1) mg/dL Magnesium (1.8-2.4) mg/dl Blood Type Gel Antibody Screen Med Orders - Current: Current Medications Acetaminophen (Tylenol) 650 mg PO Q4H PRN PRN Reason: Pain (Mild 1-3)/fever Hydrocodone Bitart/Acetaminophen ([place] 325-5 Mg) 1 tab PO Q4H PRN PRN Reason: Pain (moderate 4-6) Albuterol (Proventil Hfa) 0 gm INH Q6H PRN PRN Reason: Shortness of Breath Albuterol/Ipratropium (Duoneb 3.0-0.5 Mg/3 Ml) 3 ml NEB Q4H PRN PRN Reason: Shortness Of Breath/wheezing Bisacodyl (Dulcolax) 5 mg PO DAILY PRN PRN Reason: Constipation Cholecalciferol (Vitamin D3) 25 mcg PO BID [facility] Last Admin: 04/27/19 21:14 Dose: 25 mcg Diltiazem HCl (Cardizem) 60 mg PO TID [facility] Last Admin: 04/27/19 21:15 Dose: 60 mg Docusate Sodium (Colace) 100 mg PO BID PRN PRN Reason: Constipation Furosemide (Lasix) 40 mg PO DAILY [facility] Last Admin: 04/27/19 10:52 Dose: 40 mg Lactated Ringer's (Ringers, Lactated) 1,000 mls @ 50 mls/hr IV ASDIRECTED [facility] Last Admin: 04/27/19 22:40 Dose: 50 mls/hr Promethazine HCl 6.25 mg/ (Sodium Chloride) 50.25 mls @ 100 mls/hr IV Q6H PRN PRN Reason: Nausea/Vomiting Metoprolol Tartrate (Lopressor) 150 mg PO BID [facility] Last Admin: 04/27/19 21:16 Dose: Not Given Multivitamins (Thera) 1 each PO DAILY [facility] Last Admin: 04/27/19 10:55 Dose: 1 each Ondansetron HCl (Zofran) 4 mg IV Q6H PRN PRN Reason: Nausea/Vomiting Pantoprazole Sodium (Protonix Iv) 40 mg IVPUSH Q12H [facility] Last Admin: 04/27/19 21:11 Dose: 40 mg Polyethylene Glycol (Miralax) 17 gm PO DAILY PRN PRN Reason: Constipation Potassium Chloride (Potassium Chloride Solution) 10 meq PO DAILY [facility] Last Admin: 04/27/19 10:51 Dose: 10 meq Senna/Docusate Sodium (Senna Plus) 1 tab PO BID PRN PRN Reason: Constipation Simvastatin (Zocor) 10 mg PO BEDTIME [facility] Last Admin: 04/27/19 21:14 Dose: 10 mg Sodium Chloride (Saline Flush) 10 ml FLUSH ASDIRECTED PRN PRN Reason: Keep Vein Open Last Admin: 04/27/19 01:39 Dose: 10 ml Discontinued Medications Pantoprazole Sodium 40 mg/ (Sodium Chloride) 100 mls @ 200 mls/hr IV ONETIME ONE Stop: 04/27/19 03:19 Last Admin: 04/27/19 03:00 Dose: 200 mls/hr Sodium Chloride (Normal Saline) Confirm Administered Dose 250 mls @ as directed .ROUTE .STK-MED ONE Stop: 04/27/19 11:27 Last Admin: 04/27/19 14:19 Dose: 100 mls/hr Sodium Chloride (Normal Saline) 250 mls @ 30 mls/hr IV ASDIRECTED [facility] Last Admin: 04/27/19 22:24 Dose: 30 mls/hr Sodium Chloride (Normal Saline) Confirm Administered Dose 250 mls @ as directed .ROUTE .STK-MED ONE Stop: 04/27/19 22:10 Last Admin: 04/28/19 00:26 Dose: Not Given Pantoprazole Sodium (Protonix Iv) 40 mg IVPUSH ONETIME ONE Stop: 04/27/19 07:01 Last Admin: 04/27/19 06:16 Dose: 40 mg Pantoprazole Sodium (Protonix) 40 mg PO DAILY [facility] Last Admin: 04/27/19 14:18 Dose: Not Given Pantoprazole Sodium (Protonix Iv) 40 mg IV Q12HR [facility] Phytonadione (Aquamephyton) 5 mg PO ONETIME ONE Stop: 04/27/19 02:30 Last Admin: 04/27/19 02:51 Dose: 5 mg Polyethylene Glycol/Electrolytes (Golytely) 4,000 ml PO ONETIME ONE Stop: 04/28/19 00:01 Last Admin: 04/27/19 23:50 Dose: 1 bottle - Exam General: Alert, Cooperative, No Acute Distress HEENT: Pupils Equal, Pupils Reactive, EOMI, Mucous Membr. Moist/[place] Neck: Supple Lungs: Clear to Auscultation, Normal Respiratory Effort Cardiovascular: Regular Rate, Regular Rhythm GI/Abdominal Exam: Soft, Non-Tender, No Organomegaly, No Distention, No Abnormal Bruit, Abnormal Bowel Sounds (hyperactive), Other (g-tube). No: Guarding, Rigid, Rebound (Female) Exam: Deferred Back Exam: Normal Inspection, Decreased Range of Motion Extremities: Normal Inspection, Normal Range of Motion, Non-Tender, No Pedal Edema, Normal Capillary Refill Skin: Warm, Dry, Intact Neurological: No New Focal Deficit Psy/Mental Status: Alert, Normal Affect, Normal Mood - Problem List Review Problem List Initiated/Reviewed/Updated: Yes - My Orders Last 24 Hours: My Active Orders 04/27/19 08:39 Consult to Physician [CONS] Routine 04/27/19 08:41 Notify Provider Consults [RC] ASDIRECTED 04/27/19 08:45 Cardiac Monitoring [RC] CONTINUOUS Height and Weight [RC] 04 Intake and Output [RC] 04,16 Oxygen Therapy [RC] PRN Up ad Katia [RC] ASDIRECTED VTE/DVT Education [RC] PER UNIT ROUTINE Vital Signs [RC] Q4HR Consult to Spiritual Care [CONS] Routine OT Evaluation and Treatment [CONS] Routine PT Evaluation and Treatment [CONS] Routine Acetaminophen [Tylenol] 650 mg PO Q4H PRN Acetaminophen/HYDROcodone [[place] 325-5 MG] 1 tab PO Q4H PRN Albuterol [Proventil HFA] 0 gm INH Q6H PRN Albuterol/Ipratropium [DuoNeb 3.0-0.5 MG/3 ML] 3 ml NEB Q4H PRN Bisacodyl [Dulcolax] 5 mg PO DAILY PRN Docusate Sodium [Colace] 100 mg PO BID PRN Docusate Sodium/Sennosides [Senna Plus] 1 tab PO BID PRN Ondansetron [Zofran] 4 mg IV Q6H PRN Polyethylene Glycol 3350 [MiraLAX] 17 gm PO DAILY PRN Promethazine [Phenergan] 6.25 mg Sodium Chloride 0.9% [Normal Saline] 50 ml IV Q6H Sequential Compression Device [OM.PC] Per Unit Routine 04/27/19 08:46 Antiembolic Devices [RC] PER UNIT ROUTINE RT Aerosol Therapy [RC] ASDIRECTED 04/27/19 09:00 Cholecalciferol (Vitamin D3) [Vitamin D3] 25 mcg PO BID Diltiazem IR [Cardizem] 60 mg PO TID Furosemide [Lasix] 40 mg PO DAILY Metoprolol Tartrate [Lopressor] 150 mg PO BID Multivitamins,Therapeutic [Thera] 1 each PO DAILY Potassium Chloride [Potassium Chloride Solution] 10 meq PO DAILY 04/27/19 15:19 Enteral Feedings [RC] Click to Edit 04/27/19 21:00 Simvastatin [Zocor] 10 mg PO BEDTIME 04/27/19 Dinner NPO After Midnight [Nothing per Oral After Midnight Diet] [DIET] 04/28/19 11:00 HEMOGLOBIN/HEMATOCRIT,HH [HEME] Q6H 04/28/19 17:00 HEMOGLOBIN/HEMATOCRIT,HH [HEME] Q6H 04/29/19 05:11 BASIC METABOLIC PANEL,BMP [CHEM] AM MAGNESIUM [CHEM] AM 04/30/19 05:11 BASIC METABOLIC PANEL,BMP [CHEM] AM MAGNESIUM [CHEM] AM - Plan Plan:: Assessment: Acute: Rectal Bleeding - Started a couple of days ago - Had multiple episodes yesterday - No hx/o hematemesis, GI Bleed in the past, Hemorrhoids or Diverticulosis - No endoscopy in the past--> patient is a poor historian - Last GI Bleed: this morning with maroon colored stool - On Warfarin due to PAFIB - Hgb is 11.6-->8.4-->8.9-->now 8.6 grams - INR is 2.10 and was given low dose of Vit K in ED - Hold warfarin and consult general surgery - No rectal bleeding overnight - H/H Q6H Mild Renal Insufficiency - BUN of 45 and Cr of 1.1-->1.0 - Likely from rectal bleed - Monitor Chest Pain - Complaints of chest pain with radiation to [employer] but localized when I went back and re-examined her - Troponin, D-Dimer, and CKMB: both wnl - EKG shows sinus tachycardia with LB3--> Previous EKG from her PCP's office showed LB3 (not new) - CXR report read as mild bronchitis - IS as directed Chronic: HTN, HLD, PVD, COPD, PAFIB, GERD, CHERELLE, Alzheimer's Disease, Malnutrition S/p G-Tube Placement Plan: She is clinically stable NPO midnight for planned endoscopy this afternoon IV Hydration DVT/GI Prophylaxis Fall Precautions Dr. Guerra following /CM for D/c planning Daily INR Code Status: DNR/DNI Additional orders as above
[2019-04-28] MEDS: Ondansetron 4 MG/2 ML SDV IV PRN (08:29)
[2019-04-28] MEDS: Metoprolol Tartrate 100 MG Tab PO SCH ×2 (08:36→21:15)
[2019-04-28] MEDS: Pantoprazole 40 MG Vial IVPUSH SCH ×2 (09:00→21:07)
--- NOTE | 2019-04-28 09:17 | PCM.PREANE ---
Preanesthetic Assessment - Procedure Proposed Procedure: Colonoscopy - Anesthesia/Transfusion/Family Hx Anesthesia History: Prior Anesthesia Without Reaction Family History of Anesthesia Reaction: No Transfusion History: Prior Transfusion Without Reaction - Review of Systems General: Malaise Pulmonary: No Symptoms Cardiovascular: Chest Pain (pt is experiencing chest pain, chest pain protocol initiated per Dr. Bond), Dyspnea on Exertion Gastrointestinal: Nausea, Vomiting Neurological: Difficulty Walking Other: Reports: Easy Bleeding (rectal bleeding), Easy Bruising - Physical Assessment NPO Status Date: 04/27/19 NPO Status Time: 00:00 Vital Signs: Last Vital Signs Temp 36.1 C 04/28/19 05:03 Pulse 92 04/28/19 08:36 Resp 20 04/28/19 05:03 BP 134/61 04/28/19 08:36 Pulse Ox 95 04/28/19 05:03 Orthostatic Blood Pressure [ 111/60 Standing] Orthostatic Blood Pressure [ 139/68 Supine] Height: 1.47 m Weight: 60.056 kg ASA Class: 3 Mental Status: Alert & Oriented x3 Airway Class: Mallampati = 2 Dentition: Reports: Dentures Thyro-Mental Finger Breadths: 3 Mouth Opening Finger Breadths: 3 ROM/Head Extension: Limited/Partial Lungs: Clear to Auscultation, Normal Respiratory Effort Cardiovascular: Tachycardia - Lab Values: Laboratory Last Values WBC 12.97 K/mm3 (3.98-10.04) H 04/27/19 01:15 RBC 4.44 M/mm3 (3.98-5.22) 04/27/19 01:15 Hgb 8.9 gm/dl (11.2-15.7) L 04/28/19 05:10 Hct 30.9 % (34.1-44.9) L 04/28/19 05:10 MCV 87.4 fl (79.4-94.8) 04/27/19 01:15 MCH 26.1 pg (25.6-32.2) 04/27/19 01:15 MCHC 29.9 g/dl (32.2-35.5) L 04/27/19 01:15 RDW Std Deviation 54.5 fL (36.4-46.3) H 04/27/19 01:15 Plt Count 292 K/mm3 (182-369) 04/27/19 01:15 MPV 10.8 fl (9.4-12.3) 04/27/19 01:15 Neut % (Auto) 76.0 % (34.0-71.1) H 04/27/19 01:15 Lymph % (Auto) 15.2 % (19.3-51.7) L 04/27/19 01:15 [place] % (Auto) 6.9 % (4.7-12.5) 04/27/19 01:15 Eos % (Auto) 1.2 (0.7-5.8) 04/27/19 01:15 Baso % (Auto) 0.2 % (0.1-1.2) 04/27/19 01:15 Neut # (Auto) 9.86 K/mm3 (1.56-6.13) H 04/27/19 01:15 Lymph # (Auto) 1.97 K/mm3 (1.18-3.74) 04/27/19 01:15 [place] # (Auto) 0.90 K/mm3 (0.24-0.36) H 04/27/19 01:15 Eos # (Auto) 0.16 K/mm3 (0.04-0.36) 04/27/19 01:15 Baso # (Auto) 0.02 K/mm3 (0.01-0.08) 04/27/19 01:15 Manual Slide Review Abnormal smear 04/27/19 01:15 PT 13.9 SECONDS (9.7-12.0) H 04/28/19 05:10 INR 1.29 04/28/19 05:10 Sodium 146 mEq/L (136-145) H 04/28/19 05:10 Potassium 3.6 mEq/L (3.5-5.1) 04/28/19 05:10 Chloride 102 mEq/L (98-107) 04/28/19 05:10 Carbon Dioxide 36 mEq/L (21-32) H 04/28/19 05:10 Anion Gap 11.6 (5-15) 04/28/19 05:10 BUN 37 mg/dL (7-18) H 04/28/19 05:10 Creatinine 1.0 mg/dL (0.55-1.02) 04/28/19 05:10 Est Cr Clr Drug Dosing 31.15 mL/min 04/28/19 05:10 Estimated GFR (MDRD) 53 mL/min (>60) 04/28/19 05:10 BUN/Creatinine Ratio 37.0 (14-18) H 04/28/19 05:10 Glucose 102 mg/dL (83-115) 04/28/19 05:10 Calcium 8.9 mg/dL (8.5-10.1) 04/28/19 05:10 Magnesium 2.1 mg/dl (1.8-2.4) 04/28/19 05:10 Total Bilirubin 0.3 mg/dL (0.2-1.0) 04/27/19 01:15 AST 15 U/L (15-37) 04/27/19 01:15 ALT 23 U/L (14-59) 04/27/19 01:15 Alkaline Phosphatase 135 U/L (46-116) H 04/27/19 01:15 Total Protein 7.2 g/dl (6.4-8.2) 04/27/19 01:15 Albumin 2.8 g/dl (3.4-5.0) L 04/27/19 01:15 Globulin 4.4 gm/dL 04/27/19 01:15 Albumin/Globulin Ratio 0.6 (1-2) L 04/27/19 01:15 MRSA (PCR) Negative 04/27/19 04:13 Blood Type A POSITIVE 04/27/19 01:15 Gel Antibody Screen Negative 04/27/19 01:15 - Imaging/EKG Impressions: EKG 04/27/2019 NSR LBBB - Allergies Allergies/Adverse Reactions: Allergies Allergy/AdvReac Type Severity Reaction Status Date / Time No Known Allergies Allergy Verified 04/27/19 00:46 - Anesthesia Plan Pre-Op Medication Ordered: Beta Dell Beta Dell: Metoprolol Med Last Dose Date: 04/28/19 Med Last Dose Time: 15:30 - Acknowledgements Anesthesia Type Planned: MAC Pt an Appropriate Candidate for the Planned Anesthesia: Yes Alternatives and Risks of Anesthesia Discussed w Pt/Guardian: Yes Pt/Guardian Understands and Agrees with Anesthesia Plan: Yes Additional Comments: Labs in normal range, no change in EKG per Dr. Bond PreAnesthesia Questionnaire HEENT History: Reports: None Cardiovascular History: Reports: Afib, High Cholesterol, Hypertension, PVD Respiratory History: Reports: COPD Gastrointestinal History: Reports: GERD UMBRELLA MENDER History: Reports: None Other OB/BYN History: Pt states she had one ovary removed, unsure which one. Musculoskeletal History: Reports: None Neurological History: Reports: Alzheimers Disease Psychiatric History: Reports: Dementia Endocrine/Metabolic History: Reports: None Hematologic History: Reports: Anemia, Anticoagulation Therapy, Iron Deficiency Immunologic History: Reports: None Oncologic (Cancer) History: Reports: None Dermatologic History: Reports: None - Infectious Disease History Infectious Disease History: Reports: None - Past Surgical History GI Surgical History: Reports: Other (See Below) Other GI Surgeries/Procedures: Pt has g-tube placed due to severe protein- calorie malnutrition. Female Surgical History: Reports: Other (See Below) Other Female Surgeries/Procedures: Pt states she had one ovary removed, unsure which one. - SUBSTANCE USE Smoking Status *Q: Never Smoker Recreational Drug Use History: No - HOME MEDS Home Medications: Home Meds Albuterol [Ventolin HFA] 2 puff INH Q6H 04/27/19 [History] Cholecalciferol (Vitamin D3) [Vitamin D3] 1,000 unit PO BID 04/27/19 [History] Diltiazem HCl [Cardizem] 60 mg PO TID 04/27/19 [History] Furosemide [Lasix] 40 mg PO DAILY 04/27/19 [History] Lactose-Reduced Food/Fiber [Isosource 1.5 [place] Tube Feed] 04/27/19 [History] Memantine [Namenda] 10 mg PO BID 04/27/19 [History] Metoprolol Tartrate 1.5 tab PO BID 04/27/19 [History] Multivitamin [Daily Multiple Vitamin] 1 each PO DAILY 04/27/19 [History] Omeprazole 20 mg PO DAILY 04/27/19 [History] Potassium Chloride [Potassium Chloride Solution] 10 meq PO DAILY 04/27/19 [ History] Pravastatin [Pravachol] 20 mg PO BEDTIME 04/27/19 [History] Warfarin [Coumadin] 1.25 mg PO ASDIRECTED 04/27/19 [History] Warfarin [Coumadin] 2.5 mg PO ASDIRECTED 04/27/19 [History] - CURRENT (IN HOUSE) MEDS Current Meds: Current Medications Acetaminophen (Tylenol) 650 mg PO Q4H PRN PRN Reason: Pain (Mild 1-3)/fever Hydrocodone Bitart/Acetaminophen ([place] 325-5 Mg) 1 tab PO Q4H PRN PRN Reason: Pain (moderate 4-6) Albuterol (Proventil Hfa) 0 gm INH Q6H PRN PRN Reason: Shortness of Breath Albuterol/Ipratropium (Duoneb 3.0-0.5 Mg/3 Ml) 3 ml NEB Q4H PRN PRN Reason: Shortness Of Breath/wheezing Bisacodyl (Dulcolax) 5 mg PO DAILY PRN PRN Reason: Constipation Cholecalciferol (Vitamin D3) 25 mcg PO BID [facility] Last Admin: 04/27/19 21:14 Dose: 25 mcg Diltiazem HCl (Cardizem) 60 mg PO TID [facility] Last Admin: 04/27/19 21:15 Dose: 60 mg Docusate Sodium (Colace) 100 mg PO BID PRN PRN Reason: Constipation Furosemide (Lasix) 40 mg PO DAILY [facility] Last Admin: 04/27/19 10:52 Dose: 40 mg Lactated Ringer's (Ringers, Lactated) 1,000 mls @ 50 mls/hr IV ASDIRECTED [facility] Last Admin: 04/27/19 22:40 Dose: 50 mls/hr Promethazine HCl 6.25 mg/ (Sodium Chloride) 50.25 mls @ 100 mls/hr IV Q6H PRN PRN Reason: Nausea/Vomiting Metoprolol Tartrate (Lopressor) 150 mg PO BID [facility] Last Admin: 04/28/19 08:36 Dose: 150 mg Multivitamins (Thera) 1 each PO DAILY [facility] Last Admin: 04/27/19 10:55 Dose: 1 each Ondansetron HCl (Zofran) 4 mg IV Q6H PRN PRN Reason: Nausea/Vomiting Last Admin: 04/28/19 08:29 Dose: 4 mg Pantoprazole Sodium (Protonix Iv) 40 mg IVPUSH Q12H [facility] Last Admin: 04/28/19 09:00 Dose: 40 mg Polyethylene Glycol (Miralax) 17 gm PO DAILY PRN PRN Reason: Constipation Potassium Chloride (Potassium Chloride Solution) 10 meq PO DAILY [facility] Last Admin: 04/27/19 10:51 Dose: 10 meq Senna/Docusate Sodium (Senna Plus) 1 tab PO BID PRN PRN Reason: Constipation Simvastatin (Zocor) 10 mg PO BEDTIME [facility] Last Admin: 04/27/19 21:14 Dose: 10 mg Sodium Chloride (Saline Flush) 10 ml FLUSH ASDIRECTED PRN PRN Reason: Keep Vein Open Last Admin: 04/27/19 01:39 Dose: 10 ml Discontinued Medications Pantoprazole Sodium 40 mg/ (Sodium Chloride) 100 mls @ 200 mls/hr IV ONETIME ONE Stop: 04/27/19 03:19 Last Admin: 04/27/19 03:00 Dose: 200 mls/hr Sodium Chloride (Normal Saline) Confirm Administered Dose 250 mls @ as directed .ROUTE .STK-MED ONE Stop: 04/27/19 11:27 Last Admin: 04/27/19 14:19 Dose: 100 mls/hr Sodium Chloride (Normal Saline) 250 mls @ 30 mls/hr IV ASDIRECTED [facility] Last Admin: 04/27/19 22:24 Dose: 30 mls/hr Sodium Chloride (Normal Saline) Confirm Administered Dose 250 mls @ as directed .ROUTE .STK-MED ONE Stop: 04/27/19 22:10 Last Admin: 04/28/19 00:26 Dose: Not Given Pantoprazole Sodium (Protonix Iv) 40 mg IVPUSH ONETIME ONE Stop: 04/27/19 07:01 Last Admin: 04/27/19 06:16 Dose: 40 mg Pantoprazole Sodium (Protonix) 40 mg PO DAILY [facility] Last Admin: 04/27/19 14:18 Dose: Not Given Pantoprazole Sodium (Protonix Iv) 40 mg IV Q12HR [facility] Phytonadione (Aquamephyton) 5 mg PO ONETIME ONE Stop: 04/27/19 02:30 Last Admin: 04/27/19 02:51 Dose: 5 mg Polyethylene Glycol/Electrolytes (Golytely) 4,000 ml PO ONETIME ONE Stop: 04/28/19 00:01 Last Admin: 04/27/19 23:50 Dose: 1 bottle
[2019-04-28] MEDS ORDERED: Nitroglycerin 0.4 MG Tab.SL SL ONE (09:19)
--- NOTE | 2019-04-28 10:12 | CR ---
Chest: Portable view of the chest is obtained. Comparison: No prior chest x-ray is available. Heart size is slightly accentuated from portable technique. Upper mediastinum is normal. Increased central lung markings are noted. Focal area of increased density is noted within the right base. Left lung is clear. Impression: 1. Slight increased lung markings which are more focal within the right base. Difficult to exclude slight bronchitis. 2. Nothing acute is otherwise seen. Diagnostic code #3
[2019-04-28] MEDS: Potassium Chloride 10% 20 MEQ/15 ML Soln 15 ML UD Cup PO SCH (10:39)
[2019-04-28] MEDS: Diltiazem IR 60 MG Tab PO SCH ×3 (10:39→21:15)
[2019-04-28] MEDS: Multivitamins,Therapeutic Tab PO SCH (10:39)
[2019-04-28] MEDS: Furosemide 40 MG Tab PO SCH (10:39)
[2019-04-28] MEDS: Cholecalciferol (Vitamin D3) 25 MCG Tab PO SCH ×2 (10:39→21:15)
[2019-04-28] MEDS ORDERED: fentaNYL 250 MCG/5 ML SDV ONE (14:46)
[2019-04-28] MEDS ORDERED: Lidocaine 1% 4 ML ONE (14:46)
[2019-04-28] MEDS ORDERED: Propofol 200 MG/20 ML SDV ONE (14:46)
[2019-04-28] MEDS ORDERED: Rocuronium 50 MG/5 ML Vial ONE (14:46)
[2019-04-28] MEDS ORDERED: Metoprolol Tartrate 5 MG/5 ML SDV ONE (14:50)
--- NOTE | 2019-04-28 14:58 | PCM.SURGPN ---
- General Info Date of Service: 04/28/19 - Patient Data Vitals - Most Recent: Last Vital Signs Temp 96.8 F 04/28/19 11:18 Pulse 84 04/28/19 11:18 Resp 16 04/28/19 11:18 BP 116/51 L 04/28/19 11:18 Pulse Ox 100 04/28/19 11:18 Orthostatic Blood Pressure [ 111/60 Standing] Orthostatic Blood Pressure [ 139/68 Supine] Weight - Most Recent: 60.056 kg I&O - Last 24 Hours: Intake & Output 04/27/19 04/28/19 04/28/19 22:59 06:59 14:59 Intake Total 610 1005 Output Total 300 Balance 610 705 Lab Results Last 24 Hrs: Laboratory Results - last 24 hr 04/27/19 04/27/19 04/27/19 Range/Units 01:15 15:30 15:30 Hgb (11.2-15.7) gm/dl Hct (34.1-44.9) % PT 17.7 H (9.7-12.0) SECONDS INR 1.67 D-Dimer, Quantitative (0.19-0.50) mg/L Sodium 142 (136-145) mEq/L Potassium 4.1 (3.5-5.1) mEq/L Chloride 101 (98-107) mEq/L Carbon Dioxide 35 H (21-32) mEq/L Anion Gap 10.1 (5-15) BUN 42 H (7-18) mg/dL Creatinine 1.0 (0.55-1.02) mg/dL Est Cr Clr Drug Dosing 31.15 mL/min Estimated GFR (MDRD) 53 (>60) mL/min BUN/Creatinine Ratio 42.0 H (14-18) Glucose 114 (83-115) mg/dL Calcium 9.2 (8.5-10.1) mg/dL Magnesium 2.1 (1.8-2.4) mg/dl CK-MB (CK-2) (0-3.6) ng/ml Blood Type A POSITIVE Gel Antibody Screen Negative 04/27/19 04/27/19 04/27/19 Range/Units 17:08 17:08 23:05 Hgb 9.6 L 8.4 L (11.2-15.7) gm/dl Hct 33.1 L 29.1 L (34.1-44.9) % PT 17.0 H (9.7-12.0) SECONDS INR 1.60 D-Dimer, Quantitative (0.19-0.50) mg/L Sodium (136-145) mEq/L Potassium (3.5-5.1) mEq/L Chloride (98-107) mEq/L Carbon Dioxide (21-32) mEq/L Anion Gap (5-15) BUN (7-18) mg/dL Creatinine (0.55-1.02) mg/dL Est Cr Clr Drug Dosing mL/min Estimated GFR (MDRD) (>60) mL/min BUN/Creatinine Ratio (14-18) Glucose (83-115) mg/dL Calcium (8.5-10.1) mg/dL Magnesium (1.8-2.4) mg/dl CK-MB (CK-2) (0-3.6) ng/ml Blood Type Gel Antibody Screen 04/27/19 04/28/19 04/28/19 Range/Units 23:05 02:04 05:10 Hgb 8.9 L (11.2-15.7) gm/dl Hct 30.9 L (34.1-44.9) % PT 14.8 H 14.6 H (9.7-12.0) SECONDS INR 1.38 1.36 D-Dimer, Quantitative (0.19-0.50) mg/L Sodium (136-145) mEq/L Potassium (3.5-5.1) mEq/L Chloride (98-107) mEq/L Carbon Dioxide (21-32) mEq/L Anion Gap (5-15) BUN (7-18) mg/dL Creatinine (0.55-1.02) mg/dL Est Cr Clr Drug Dosing mL/min Estimated GFR (MDRD) (>60) mL/min BUN/Creatinine Ratio (14-18) Glucose (83-115) mg/dL Calcium (8.5-10.1) mg/dL Magnesium (1.8-2.4) mg/dl CK-MB (CK-2) (0-3.6) ng/ml Blood Type Gel Antibody Screen 04/28/19 04/28/19 04/28/19 Range/Units 05:10 05:10 09:34 Hgb (11.2-15.7) gm/dl Hct (34.1-44.9) % PT 13.9 H (9.7-12.0) SECONDS INR 1.29 D-Dimer, Quantitative (0.19-0.50) mg/L Sodium 146 H (136-145) mEq/L Potassium 3.6 (3.5-5.1) mEq/L Chloride 102 (98-107) mEq/L Carbon Dioxide 36 H (21-32) mEq/L Anion Gap 11.6 (5-15) BUN 37 H (7-18) mg/dL Creatinine 1.0 (0.55-1.02) mg/dL Est Cr Clr Drug Dosing 31.15 mL/min Estimated GFR (MDRD) 53 (>60) mL/min BUN/Creatinine Ratio 37.0 H (14-18) Glucose 102 (83-115) mg/dL Calcium 8.9 (8.5-10.1) mg/dL Magnesium 2.1 (1.8-2.4) mg/dl CK-MB (CK-2) 1.1 (0-3.6) ng/ml Blood Type Gel Antibody Screen 04/28/19 04/28/19 04/28/19 Range/Units 10:05 10:05 10:05 Hgb 8.6 L (11.2-15.7) gm/dl Hct 30.0 L (34.1-44.9) % PT 13.7 H (9.7-12.0) SECONDS INR 1.27 D-Dimer, Quantitative 0.27 (0.19-0.50) mg/L Sodium (136-145) mEq/L Potassium (3.5-5.1) mEq/L Chloride (98-107) mEq/L Carbon Dioxide (21-32) mEq/L Anion Gap (5-15) BUN (7-18) mg/dL Creatinine (0.55-1.02) mg/dL Est Cr Clr Drug Dosing mL/min Estimated GFR (MDRD) (>60) mL/min BUN/Creatinine Ratio (14-18) Glucose (83-115) mg/dL Calcium (8.5-10.1) mg/dL Magnesium (1.8-2.4) mg/dl CK-MB (CK-2) (0-3.6) ng/ml Blood Type Gel Antibody Screen Med Orders - Current: Current Medications Acetaminophen (Tylenol) 650 mg PO Q4H PRN PRN Reason: Pain (Mild 1-3)/fever Hydrocodone Bitart/Acetaminophen ([place] 325-5 Mg) 1 tab PO Q4H PRN PRN Reason: Pain (moderate 4-6) Albuterol (Proventil Hfa) 0 gm INH Q6H PRN PRN Reason: Shortness of Breath Albuterol/Ipratropium (Duoneb 3.0-0.5 Mg/3 Ml) 3 ml NEB Q4H PRN PRN Reason: Shortness Of Breath/wheezing Bisacodyl (Dulcolax) 5 mg PO DAILY PRN PRN Reason: Constipation Cholecalciferol (Vitamin D3) 25 mcg PO BID [facility] Last Admin: 04/28/19 10:39 Dose: Not Given Diltiazem HCl (Cardizem) 60 mg PO TID [facility] Last Admin: 04/28/19 14:17 Dose: 60 mg Docusate Sodium (Colace) 100 mg PO BID PRN PRN Reason: Constipation Furosemide (Lasix) 40 mg PO DAILY [facility] Last Admin: 04/28/19 10:39 Dose: Not Given Lactated Ringer's (Ringers, Lactated) 1,000 mls @ 50 mls/hr IV ASDIRECTED [facility] Last Admin: 04/27/19 22:40 Dose: 50 mls/hr Promethazine HCl 6.25 mg/ (Sodium Chloride) 50.25 mls @ 100 mls/hr IV Q6H PRN PRN Reason: Nausea/Vomiting Metoprolol Tartrate (Lopressor) 150 mg PO BID [facility] Last Admin: 04/28/19 08:36 Dose: 150 mg Multivitamins (Thera) 1 each PO DAILY [facility] Last Admin: 04/28/19 10:39 Dose: Not Given Ondansetron HCl (Zofran) 4 mg IV Q6H PRN PRN Reason: Nausea/Vomiting Last Admin: 04/28/19 08:29 Dose: 4 mg Pantoprazole Sodium (Protonix Iv) 40 mg IVPUSH Q12H [facility] Last Admin: 04/28/19 09:00 Dose: 40 mg Polyethylene Glycol (Miralax) 17 gm PO DAILY PRN PRN Reason: Constipation Potassium Chloride (Potassium Chloride Solution) 10 meq PO DAILY [facility] Last Admin: 04/28/19 10:39 Dose: Not Given Senna/Docusate Sodium (Senna Plus) 1 tab PO BID PRN PRN Reason: Constipation Simvastatin (Zocor) 10 mg PO BEDTIME [facility] Last Admin: 04/27/19 21:14 Dose: 10 mg Sodium Chloride (Saline Flush) 10 ml FLUSH ASDIRECTED PRN PRN Reason: Keep Vein Open Last Admin: 04/27/19 01:39 Dose: 10 ml Discontinued Medications Fentanyl (Sublimaze) Confirm Administered Dose 250 mcg .ROUTE .STK-MED ONE Stop: 04/28/19 14:47 Pantoprazole Sodium 40 mg/ (Sodium Chloride) 100 mls @ 200 mls/hr IV ONETIME ONE Stop: 04/27/19 03:19 Last Admin: 04/27/19 03:00 Dose: 200 mls/hr Sodium Chloride (Normal Saline) Confirm Administered Dose 250 mls @ as directed .ROUTE .STK-MED ONE Stop: 04/27/19 11:27 Last Admin: 04/27/19 14:19 Dose: 100 mls/hr Sodium Chloride (Normal Saline) 250 mls @ 30 mls/hr IV ASDIRECTED [facility] Last Admin: 04/27/19 22:24 Dose: 30 mls/hr Sodium Chloride (Normal Saline) Confirm Administered Dose 250 mls @ as directed .ROUTE .STK-MED ONE Stop: 04/27/19 22:10 Last Admin: 04/28/19 00:26 Dose: Not Given Lidocaine HCl (Xylocaine-Mpf 1%) Confirm Administered Dose 4 mls @ as directed .ROUTE .STK-MED ONE Stop: 04/28/19 14:47 Metoprolol Tartrate (Lopressor) Confirm Administered Dose 5 mg .ROUTE .STK-MED ONE Stop: 04/28/19 14:51 Nitroglycerin (Nitrostat) 0.4 mg SL ONETIME ONE Stop: 04/28/19 09:20 Last Admin: 04/28/19 09:35 Dose: 0.4 mg Pantoprazole Sodium (Protonix Iv) 40 mg IVPUSH ONETIME ONE Stop: 04/27/19 07:01 Last Admin: 04/27/19 06:16 Dose: 40 mg Pantoprazole Sodium (Protonix) 40 mg PO DAILY [facility] Last Admin: 04/27/19 14:18 Dose: Not Given Pantoprazole Sodium (Protonix Iv) 40 mg IV Q12HR [facility] Phytonadione (Aquamephyton) 5 mg PO ONETIME ONE Stop: 04/27/19 02:30 Last Admin: 04/27/19 02:51 Dose: 5 mg Polyethylene Glycol/Electrolytes (Golytely) 4,000 ml PO ONETIME ONE Stop: 04/28/19 00:01 Last Admin: 04/27/19 23:50 Dose: 1 bottle Propofol (Diprivan 20 Ml) Confirm Administered Dose 200 mg .ROUTE .STK-MED ONE Stop: 04/28/19 14:47 Rocuronium [place] (Zemuron) Confirm Administered Dose 50 mg .ROUTE .STK-MED ONE Stop: 04/28/19 14:47 - Exam Quality Assessment: Supplemental Oxygen General: Alert, Oriented, Cooperative GI/Abdominal Exam: Soft, Non-Tender, No Distention, No Mass - Problem List Review Problem List Initiated/Reviewed/Updated: No - My Orders Last 24 Hours: Active Orders 24 hr Category Date Time Status Communication Order [RC] DAILY Care 04/28/19 09:00 Active EKG 12 Lead [EKG Documentation Completion] [RC] AM Care 04/28/19 09:06 Active HOB [Head of Bed Elevation] [RC] ASDIRECTED Care 04/28/19 06:49 Active Enteral Feedings [RC] Click to Edit Diet 04/27/19 15:19 Active NPO After Midnight [Nothing per Oral After Midnight Diet 04/27/19 Dinner Active Diet] [DIET] BASIC METABOLIC PANEL,BMP [CHEM] AM Lab 04/29/19 05:11 Ordered BASIC METABOLIC PANEL,BMP [CHEM] AM Lab 04/30/19 05:11 Ordered CKMB [CHEM] Routine Lab 04/28/19 14:25 Received HEMOGLOBIN/HEMATOCRIT,HH [HEME] Q6H Lab 04/28/19 17:00 Ordered INR,PT,PROTHROMBIN TIME [COAG] Q6H Lab 04/28/19 17:00 Ordered INR,PT,PROTHROMBIN TIME [COAG] Q6H Lab 04/28/19 23:00 Ordered MAGNESIUM [CHEM] AM Lab 04/29/19 05:11 Ordered MAGNESIUM [CHEM] AM Lab 04/30/19 05:11 Ordered TROPONIN I [CHEM] AM Lab 04/29/19 05:11 Ordered TROPONIN I [CHEM] Routine Lab 04/28/19 14:25 Received Simvastatin [Zocor] Med 04/27/19 21:00 Active 10 mg PO BEDTIME Schedule Procedure [COMM] Routine Oth 04/28/19 09:00 Ordered Medication Orders Acetaminophen (Tylenol) 650 mg PO Q4H PRN PRN Reason: Pain (Mild 1-3)/fever Hydrocodone Bitart/Acetaminophen ([place] 325-5 Mg) 1 tab PO Q4H PRN PRN Reason: Pain (moderate 4-6) Albuterol (Proventil Hfa) 0 gm INH Q6H PRN PRN Reason: Shortness of Breath Albuterol/Ipratropium (Duoneb 3.0-0.5 Mg/3 Ml) 3 ml NEB Q4H PRN PRN Reason: Shortness Of Breath/wheezing Bisacodyl (Dulcolax) 5 mg PO DAILY PRN PRN Reason: Constipation Cholecalciferol (Vitamin D3) 25 mcg PO BID [facility] Last Admin: 04/28/19 10:39 Dose: Admin: 04/27/19 21:14 Dose: 25 mcg Admin: 04/27/19 10:55 Dose: 25 mcg Diltiazem HCl (Cardizem) 60 mg PO TID [facility] Last Admin: 04/28/19 14:17 Dose: 60 mg Admin: 04/28/19 10:39 Dose: Admin: 04/27/19 21:15 Dose: 60 mg Admin: 04/27/19 15:44 Dose: 60 mg Admin: 04/27/19 10:58 Dose: 60 mg Docusate Sodium (Colace) 100 mg PO BID PRN PRN Reason: Constipation Furosemide (Lasix) 40 mg PO DAILY [facility] Last Admin: 04/28/19 10:39 Dose: Admin: 04/27/19 10:52 Dose: 40 mg Lactated Ringer's (Ringers, Lactated) 1,000 mls @ 50 mls/hr IV ASDIRECTED [facility] Last Admin: 04/27/19 22:40 Dose: 50 mls/hr Infusion: 04/27/19 21:38 Dose: 50 mls/hr Admin: 04/27/19 01:38 Dose: 50 mls/hr Promethazine HCl 6.25 mg/ (Sodium Chloride) 50.25 mls @ 100 mls/hr IV Q6H PRN PRN Reason: Nausea/Vomiting Metoprolol Tartrate (Lopressor) 150 mg PO BID [facility] Last Admin: 04/28/19 08:36 Dose: 150 mg Admin: 04/27/19 21:16 Dose: Not Given Admin: 04/27/19 10:52 Dose: 150 mg Multivitamins (Thera) 1 each PO DAILY [facility] Last Admin: 04/28/19 10:39 Dose: Admin: 04/27/19 10:55 Dose: 1 each Ondansetron HCl (Zofran) 4 mg IV Q6H PRN PRN Reason: Nausea/Vomiting Last Admin: 04/28/19 08:29 Dose: 4 mg Pantoprazole Sodium (Protonix Iv) 40 mg IVPUSH Q12H [facility] Last Admin: 04/28/19 09:00 Dose: 40 mg Admin: 04/27/19 21:11 Dose: 40 mg Admin: 04/27/19 10:57 Dose: 40 mg Polyethylene Glycol (Miralax) 17 gm PO DAILY PRN PRN Reason: Constipation Potassium Chloride (Potassium Chloride Solution) 10 meq PO DAILY [facility] Last Admin: 04/28/19 10:39 Dose: Admin: 04/27/19 10:51 Dose: 10 meq Senna/Docusate Sodium (Senna Plus) 1 tab PO BID PRN PRN Reason: Constipation Simvastatin (Zocor) 10 mg PO BEDTIME [facility] Last Admin: 04/27/19 21:14 Dose: 10 mg Sodium Chloride (Saline Flush) 10 ml FLUSH ASDIRECTED PRN PRN Reason: Keep Vein Open Last Admin: 04/27/19 01:39 Dose: 10 ml - Plan Plan (Free Text/Narrative):: Rectal bleeding - Patient lost 3 grams of Hgb since 04/27. INR now normalized and Hgb is has stabilized. I was planning to perform a colonoscopy/EGD earlier today but the patient complained of chest pain during bowel prep. Wrk up including EKD, Cardiac enzymes were negative. Will wait for one more read of cardiac enzyme at 2PM, if this is normal, will proceed with EGD/Colonoscopy. We discussed this plan with the patient and patient's POA who agrees. Risks, benefits and options were discussed.Informed consent was obtained.
[2019-04-28] MEDS ORDERED: ePHEDrine/Normal Saline 25 MG/5 ML Syringe ONE ×2 (15:39→16:27)
[2019-04-28] MEDS ORDERED: Phenylephrine/Normal Saline 100 MCG/ML 10 ML Syringe ONE ×2 (15:42→16:39)
[2019-04-28] MEDS ORDERED: Lactated Ringers 1,000 ML ONE (15:43)
--- NOTE | 2019-04-28 17:13 | PCM.POSTAN ---
POST ANESTHESIA ASSESSMENT - MENTAL STATUS Mental Status: Alert, Oriented - VITAL SIGNS Vital Signs: Last Vital Signs Temp 36.0 C 04/28/19 11:18 Pulse 84 04/28/19 11:18 Resp 16 04/28/19 11:18 BP 116/51 L 04/28/19 11:18 Pulse Ox 100 04/28/19 11:18 Orthostatic Blood Pressure [ 111/60 Standing] Orthostatic Blood Pressure [ 139/68 Supine] - RESPIRATORY Respiratory Status: Respiratory Rate WNL, Airway Patent, O2 Saturation Stable, Supplemental Oxygen - CARDIOVASCULAR CV Status: Pulse Rate WNL, Blood Pressure Stable - GASTROINTESTINAL GI Status: No Symptoms - PAIN Pain Score: 0 - POST OP HYDRATION Hydration Status: Adequate & Stable - OBSERVATIONS Free Text/Narrative:: no anesthesia complications noted
--- NOTE | 2019-04-28 17:24 | PCM.OPNOTE ---
- General Post-Op/Procedure Note Date of Surgery/Procedure: 04/28/19 Operative Procedure(s): Colonoscopy and Egd Findings: EGD-Hiatal hernia, G-tube in place. Otherwise normal study, no stigmata of bleeding Colonoscopy: Rectal mass/stricture with rectal polyps. Pre Op Diagnosis: Rectal bleeding Post-Op Diagnosis: Rectal mass/stricture Anesthesia Technique: General ET Tube Primary Surgeon: David Guerra EBL in mLs: 5 Condition: Good Free Text/Narrative:: Intake & Output 04/28/19 04/28/19 04/28/19 06:59 14:59 22:59 Intake Total 1005 Output Total 300 Balance 705
--- NOTE | 2019-04-28 18:12 | PCM.SN ---
- Free Text/Narrative Note: Update: Patient is s/p EGD/Colonoscopy -Egd is negative for bleeding -Colonoscopy revealed a proximal rectal mass/stricture as well as polyps - Biopsied. Not able to pass pediatric colonoscopy. The mass is concerning for malignancy but will await pathology results. - Patient's POA updated Plan - Hold off anticoagulation at this time. I will discuss with Dr. Huertas if we need any other therapy - Hgb every 12 hrs. - Stop INR checks - Can stop IV Protonix - Can restart tube feeds as tolerated. - I anticipate that the patient can be discharged if Hgb stabilizes and tolerating TF and follow up in 2 weeks as an outpatient to discuss pathology results and further plans.
--- NOTE | 2019-04-28 18:29 | OR ---
DATE OF OPERATION: 04/28/2019 SURGEON: David Guerra MD INDICATIONS AND CONSENT: The patient is an 83-year-old female, who presented on 04/27 with rectal bleeding. I was consulted to see this patient. I saw the patient and noted that the patient was anticoagulated with warfarin due to AFib. Anticoagulation was stopped. Vitamin K was given. FFP was given, and INR trended down from 2.1 down to 1.2; INR 1.2 was achieved earlier today. By this morning, the patient had dropped hemoglobin from 11.7 to 8.6; however, the hemoglobin stayed stable around 8.6 in 3 consecutive checks. Because of hemoglobin drop and the fact that the patient needed to be anticoagulated, we offered the patient EGD and colonoscopy to evaluate the site of bleeding and find it and attempt to provide endoscopic therapy. To this end, the patient was prepped. However, during prep, the patient did complain of chest pain. Workup was negative including troponins. Therefore, although she had partial prep, we proceeded with colonoscopy. Prior to going to colonoscopy, POA for the patient was called. We discussed all plan including risks, benefits, and alternatives to the procedure. POA understood and agreed to proceed with the procedure. Informed consent was obtained. DESCRIPTION OF PROCEDURE: The patient was taken to the procedure room, placed in a supine position. After induction of general endotracheal anesthesia, the patient's position was turned into left lateral decubitus. We began with esophagogastroduodenoscopy, and to do this, the EGD scope was inserted into the mouth and advanced through the esophagus all the way to the stomach and duodenum. We did evaluate the duodenum. Duodenum was normal. There was no stigmata of bleeding. The stomach appeared to be granular mucosa and the PEG tube was visualized and seemed to be in correct position. There was no stigmata of bleeding. The patient had medium - sized hiatal hernia with no ulcers. The scope was advanced into the esophagus. The GE junction appeared to be normal and the rest of the esophagus was normal. The scope was withdrawn. Next, we proceeded with colonoscopy. Adult scope was brought into the field and prior to inserting the colonoscope, rectal exam was performed. There were no palpable masses or hemorrhoids that were bleeding. 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 Around the stricture, there were several hard polyps, and 2 of these polyps were biopsied with hot snare. The stricture was also biopsied with jumbo forceps. Both samples were taken for pathology. Next, we exchanged the adult scope because we could not traverse the stricture with this scope into a pediatric scope. Pediatric scope was likewise advanced into the anus and rectum, and we reached the stricture/mass area, and even with pediatric scope, we could not traverse the tight stricture in the upper rectum despite various maneuvers. Because of this, then the scope was withdrawn and the procedure was aborted at this point. There was no clear stigmata of bleeding on the stricture, and the biopsy and polypectomy sites, all appeared to be hemostatic. At this point, the procedure was completed. The patient was awoken from anesthesia, extubated, and taken to the PACU in stable condition. The plan will be to wait for Pathology and discuss the next step with the patient and the patient's POA. At this point, the patient should refrain from anticoagulation due to fresh biopsy. However, we may need input from sr. director product management to determine the risks and benefits for long-term anticoagulation for her. PREOPERATIVE DIAGNOSIS: POSTOPERATIVE DIAGNOSIS: OPERATION PERFORMED: ANESTHESIA: ESTIMATED BLOOD LOSS: MMODAL /[id number] RODNEY
[2019-04-28] MEDS: Lactated Ringers 1,000 ML IV SCH (21:07)
[2019-04-28] MEDS: Simvastatin 10 MG Tab PO SCH (21:15)
[2019-04-29] MEDS: Metoprolol Tartrate 5 MG/5 ML SDV IVPUSH PRN (03:24)
--- NOTE | 2019-04-29 07:51 | PCM.PN ---
- General Info Date of Service: 04/29/19 Admission Dx/Problem (Free Text): Admission Diagnosis/Problem Admission Diagnosis/Problem Rectal hemorrhage Subjective Update: Follow up Functional Status: Reports: Pain Controlled, Tolerating Diet, Ambulating, Urinating. Denies: New Symptoms - Review of Systems General: Denies: Fever, Chills HEENT: Reports: No Symptoms Pulmonary: Denies: Shortness of Breath Cardiovascular: Denies: Chest Pain, Dyspnea on Exertion, Lightheadedness Gastrointestinal: Denies: Abdominal Pain, Vomiting Genitourinary: Reports: No Symptoms Musculoskeletal: Reports: No Symptoms Neurological: Reports: Weakness, Gait Disturbance Psychiatric: Reports: Confusion (baseline dementia). Denies: Depression, Anxiety, Agitation, Hallucinations Systems Review Comment:: No overnight issues but had a temp last night as high as 385.C. She also has been tachycardic but had been NPO lately due to rectal bleeding. No report of rectal bleed but Hgb this AM is 8.0. She has no complaints at bedside this morning. - Patient Data Vitals - Most Recent: Last Vital Signs Temp 36.3 C 04/29/19 03:37 Pulse 117 H 04/29/19 03:37 Resp 20 04/29/19 03:37 BP 108/47 L 04/29/19 03:37 Pulse Ox 95 04/29/19 03:37 Orthostatic Blood Pressure [ 111/60 Standing] Orthostatic Blood Pressure [ 139/68 Supine] Weight - Most Recent: 60.237 kg I&O - Last 24 Hours: Intake & Output 04/28/19 04/29/19 04/29/19 22:59 06:59 14:59 Intake Total 916 1240 Output Total 1897 400 Balance -981 840 Lab Results Last 24 Hours: Laboratory Results - last 24 hr 04/28/19 04/28/19 04/28/19 Range/Units 09:34 10:05 10:05 Hgb 8.6 L (11.2-15.7) gm/dl Hct 30.0 L (34.1-44.9) % PT 13.7 H (9.7-12.0) SECONDS INR 1.27 D-Dimer, Quantitative (0.19-0.50) mg/L Sodium (136-145) mEq/L Potassium (3.5-5.1) mEq/L Chloride (98-107) mEq/L Carbon Dioxide (21-32) mEq/L Anion Gap (5-15) BUN (7-18) mg/dL Creatinine (0.55-1.02) mg/dL Est Cr Clr Drug Dosing mL/min Estimated GFR (MDRD) (>60) mL/min BUN/Creatinine Ratio (14-18) Glucose (83-115) mg/dL Calcium (8.5-10.1) mg/dL Magnesium (1.8-2.4) mg/dl CK-MB (CK-2) 1.1 (0-3.6) ng/ml Troponin I (0.00-0.056) ng/mL 04/28/19 04/28/19 04/28/19 Range/Units 10:05 14:25 14:25 Hgb (11.2-15.7) gm/dl Hct (34.1-44.9) % PT (9.7-12.0) SECONDS INR D-Dimer, Quantitative 0.27 (0.19-0.50) mg/L Sodium (136-145) mEq/L Potassium (3.5-5.1) mEq/L Chloride (98-107) mEq/L Carbon Dioxide (21-32) mEq/L Anion Gap (5-15) BUN (7-18) mg/dL Creatinine (0.55-1.02) mg/dL Est Cr Clr Drug Dosing mL/min Estimated GFR (MDRD) (>60) mL/min BUN/Creatinine Ratio (14-18) Glucose (83-115) mg/dL Calcium (8.5-10.1) mg/dL Magnesium (1.8-2.4) mg/dl CK-MB (CK-2) 1.4 (0-3.6) ng/ml Troponin I 0.053 (0.00-0.056) ng/mL 04/28/19 04/28/19 04/28/19 Range/Units 19:25 19:25 23:02 Hgb 8.3 L (11.2-15.7) gm/dl Hct 29.5 L (34.1-44.9) % PT 13.2 H 13.0 H (9.7-12.0) SECONDS INR 1.23 1.21 D-Dimer, Quantitative (0.19-0.50) mg/L Sodium (136-145) mEq/L Potassium (3.5-5.1) mEq/L Chloride (98-107) mEq/L Carbon Dioxide (21-32) mEq/L Anion Gap (5-15) BUN (7-18) mg/dL Creatinine (0.55-1.02) mg/dL Est Cr Clr Drug Dosing mL/min Estimated GFR (MDRD) (>60) mL/min BUN/Creatinine Ratio (14-18) Glucose (83-115) mg/dL Calcium (8.5-10.1) mg/dL Magnesium (1.8-2.4) mg/dl CK-MB (CK-2) (0-3.6) ng/ml Troponin I (0.00-0.056) ng/mL 04/29/19 Range/Units 05:16 Hgb (11.2-15.7) gm/dl Hct (34.1-44.9) % PT (9.7-12.0) SECONDS INR D-Dimer, Quantitative (0.19-0.50) mg/L Sodium 145 (136-145) mEq/L Potassium 3.5 (3.5-5.1) mEq/L Chloride 103 (98-107) mEq/L Carbon Dioxide 37 H (21-32) mEq/L Anion Gap 8.5 (5-15) BUN 24 H (7-18) mg/dL Creatinine 1.0 (0.55-1.02) mg/dL Est Cr Clr Drug Dosing 31.15 mL/min Estimated GFR (MDRD) 53 (>60) mL/min BUN/Creatinine Ratio 24.0 H (14-18) Glucose 163 H (83-115) mg/dL Calcium 8.6 (8.5-10.1) mg/dL Magnesium 1.8 (1.8-2.4) mg/dl CK-MB (CK-2) (0-3.6) ng/ml Troponin I 0.032 (0.00-0.056) ng/mL Med Orders - Current: Current Medications Acetaminophen (Tylenol) 650 mg PO Q4H PRN PRN Reason: Pain (Mild 1-3)/fever Hydrocodone Bitart/Acetaminophen ([place] 325-5 Mg) 1 tab PO Q4H PRN PRN Reason: Pain (moderate 4-6) Albuterol (Proventil Hfa) 0 gm INH Q6H PRN PRN Reason: Shortness of Breath Albuterol/Ipratropium (Duoneb 3.0-0.5 Mg/3 Ml) 3 ml NEB Q4H PRN PRN Reason: Shortness Of Breath/wheezing Bisacodyl (Dulcolax) 5 mg PO DAILY PRN PRN Reason: Constipation Cholecalciferol (Vitamin D3) 25 mcg PO BID [facility] Last Admin: 04/28/19 21:15 Dose: 25 mcg Diltiazem HCl (Cardizem) 60 mg PO TID [facility] Last Admin: 04/28/19 21:15 Dose: 60 mg Docusate Sodium (Colace) 100 mg PO BID PRN PRN Reason: Constipation Furosemide (Lasix) 40 mg PO DAILY [facility] Last Admin: 04/28/19 10:39 Dose: Not Given Lactated Ringer's (Ringers, Lactated) 1,000 mls @ 50 mls/hr IV ASDIRECTED [facility] Last Admin: 04/28/19 21:07 Dose: 50 mls/hr Promethazine HCl 6.25 mg/ (Sodium Chloride) 50.25 mls @ 100 mls/hr IV Q6H PRN PRN Reason: Nausea/Vomiting Metoprolol Tartrate (Lopressor) 150 mg PO BID [facility] Last Admin: 04/28/19 21:15 Dose: 150 mg Metoprolol Tartrate (Lopressor) 5 mg IVPUSH Q4H PRN PRN Reason: Tachycardia Last Admin: 04/29/19 03:24 Dose: 5 mg Multivitamins (Thera) 1 each PO DAILY [facility] Last Admin: 04/28/19 10:39 Dose: Not Given Ondansetron HCl (Zofran) 4 mg IV Q6H PRN PRN Reason: Nausea/Vomiting Last Admin: 04/28/19 08:29 Dose: 4 mg Pantoprazole Sodium (Protonix Iv) 40 mg IVPUSH Q12H [facility] Last Admin: 04/28/19 21:07 Dose: 40 mg Polyethylene Glycol (Miralax) 17 gm PO DAILY PRN PRN Reason: Constipation Potassium Chloride (Potassium Chloride Solution) 10 meq PO DAILY [facility] Last Admin: 04/28/19 10:39 Dose: Not Given Senna/Docusate Sodium (Senna Plus) 1 tab PO BID PRN PRN Reason: Constipation Simvastatin (Zocor) 10 mg PO BEDTIME [facility] Last Admin: 04/28/19 21:15 Dose: 10 mg Sodium Chloride (Saline Flush) 10 ml FLUSH ASDIRECTED PRN PRN Reason: Keep Vein Open Last Admin: 04/27/19 01:39 Dose: 10 ml Discontinued Medications Ephedrine Sulfate (Ephedrine In Ns) Confirm Administered Dose 25 mg .ROUTE .STK- MED ONE Stop: 04/28/19 15:40 Ephedrine Sulfate (Ephedrine In Ns) Confirm Administered Dose 25 mg .ROUTE .STK- MED ONE Stop: 04/28/19 16:28 Fentanyl (Sublimaze) Confirm Administered Dose 250 mcg .ROUTE .STK-MED ONE Stop: 04/28/19 14:47 Pantoprazole Sodium 40 mg/ (Sodium Chloride) 100 mls @ 200 mls/hr IV ONETIME ONE Stop: 04/27/19 03:19 Last Admin: 04/27/19 03:00 Dose: 200 mls/hr Sodium Chloride (Normal Saline) Confirm Administered Dose 250 mls @ as directed .ROUTE .STK-MED ONE Stop: 04/27/19 11:27 Last Admin: 04/27/19 14:19 Dose: 100 mls/hr Sodium Chloride (Normal Saline) 250 mls @ 30 mls/hr IV ASDIRECTED [facility] Last Admin: 04/27/19 22:24 Dose: 30 mls/hr Sodium Chloride (Normal Saline) Confirm Administered Dose 250 mls @ as directed .ROUTE .STK-MED ONE Stop: 04/27/19 22:10 Last Admin: 04/28/19 00:26 Dose: Not Given Lidocaine HCl (Xylocaine-Mpf 1%) Confirm Administered Dose 4 mls @ as directed .ROUTE .STK-MED ONE Stop: 04/28/19 14:47 Lactated Ringer's (Ringers, Lactated) Confirm Administered Dose 1,000 mls @ as directed .ROUTE .STK-MED ONE Stop: 04/28/19 15:44 Metoprolol Tartrate (Lopressor) Confirm Administered Dose 5 mg .ROUTE .STK-MED ONE Stop: 04/28/19 14:51 Nitroglycerin (Nitrostat) 0.4 mg SL ONETIME ONE Stop: 04/28/19 09:20 Last Admin: 04/28/19 09:35 Dose: 0.4 mg Pantoprazole Sodium (Protonix Iv) 40 mg IVPUSH ONETIME ONE Stop: 04/27/19 07:01 Last Admin: 04/27/19 06:16 Dose: 40 mg Pantoprazole Sodium (Protonix) 40 mg PO DAILY [facility] Last Admin: 04/27/19 14:18 Dose: Not Given Pantoprazole Sodium (Protonix Iv) 40 mg IV Q12HR [facility] Phenylephrine HCl (Phenylephrine In Ns 100 Mcg/Ml) Confirm Administered Dose 1 mg .ROUTE .STK-MED ONE Stop: 04/28/19 15:43 Phenylephrine HCl (Phenylephrine In Ns 100 Mcg/Ml) Confirm Administered Dose 1 mg .ROUTE .STK-MED ONE Stop: 04/28/19 16:40 Phytonadione (Aquamephyton) 5 mg PO ONETIME ONE Stop: 04/27/19 02:30 Last Admin: 04/27/19 02:51 Dose: 5 mg Polyethylene Glycol/Electrolytes (Golytely) 4,000 ml PO ONETIME ONE Stop: 04/28/19 00:01 Last Admin: 04/27/19 23:50 Dose: 1 bottle Propofol (Diprivan 20 Ml) Confirm Administered Dose 200 mg .ROUTE .STK-MED ONE Stop: 04/28/19 14:47 Rocuronium [place] (Zemuron) Confirm Administered Dose 50 mg .ROUTE .STK-MED ONE Stop: 04/28/19 14:47 - Exam General: Alert, Cooperative, No Acute Distress HEENT: Pupils Equal, Pupils Reactive, Mucous Membr. Moist/[place] Neck: Supple Lungs: Normal Respiratory Effort, Decreased Breath Sounds Cardiovascular: Regular Rhythm, Tachycardia GI/Abdominal Exam: Normal Bowel Sounds, Soft, Non-Tender, No Organomegaly, No Distention, No Abnormal Bruit, Other (g-tube and midline abdominal scar) (Female) Exam: Deferred Back Exam: Normal Inspection, Decreased Range of Motion Extremities: Normal Inspection, Normal Range of Motion, Non-Tender, No Pedal Edema, Normal Capillary Refill Peripheral Pulses: 2+: Posterior Tibial (R), Dorsalis Pedis (R) Skin: Warm, Dry, Intact, Rash (left flank-lower abdomen) Neurological: No New Focal Deficit. No: Normal Gait Psy/Mental Status: Alert, Normal Affect, Normal Mood - Problem List Review Problem List Initiated/Reviewed/Updated: Yes - My Orders Last 24 Hours: My Active Orders 04/28/19 09:06 EKG 12 Lead [EKG Documentation Completion] [RC] AM 04/28/19 18:39 Communication Order [RC] QSHIFT 04/29/19 03:12 Metoprolol Tartrate [Lopressor] 5 mg IVPUSH Q4H PRN 04/30/19 05:11 BASIC METABOLIC PANEL,BMP [CHEM] AM MAGNESIUM [CHEM] AM - Plan Plan:: Assessment: Acute: Rectal Bleeding - Started a couple of days ago - Had multiple episodes yesterday - No hx/o hematemesis, GI Bleed in the past, Hemorrhoids or Diverticulosis - No endoscopy in the past--> patient is a poor historian - Last GI Bleed: this morning with maroon colored stool - On Warfarin due to PAFIB; still off anticoagulation per general surgery's recommendation - Hgb is 11.6-->8.4-->8.9-->8.6-->8.0 grams - INR is 2.10 and was given low dose of Vit K in ED - Hold warfarin and consult general surgery - No rectal bleeding overnight - Iron Panel in AM - Routine AM labs Bronchitis/Early Pneumonia - She is mostly bend bound - Jack a temp last night as high as 38.5 C - Consider IV Antibiotics - Sputum Culture and IS as directed - Serial CXR as indicated Sinus Tachycardia - Carries a hx/o atrial fibrillation - HR is 120s-130s - EKGs show sinus tachycardia - On Cardizem 60 mg po TID plus Metoprolol Tartrate 150 mg po BID - Thyroid Panel and will add PRN IVP Cardizem 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 Guerra's Note - S/p EGD/Colonoscopy - Not able to pass pediatric colonoscopy - The mass is concerning for malignancy but will await pathology results - Patient's POA updated - Advised Dr. Lucas to inform PCP about the abnormal finding as noted above S/p Mild Renal Insufficiency - At baseline - BUN of 45 and Cr of 1.1-->1.0 - Likely from rectal bleed - Monitor S/p Chest Pain - Complaints of chest pain with radiation to [place] but localized when I went back and re-examined her - Troponin, D-Dimer, and CKMB: both wnl - EKG shows sinus tachycardia with LB3--> Previous EKG from her PCP's office showed LB3 (not new) - CXR report read as mild bronchitis - IS as directed Chronic: HTN, HLD, PVD, COPD, PAFIB, GERD, CHERELLE, Alzheimer's Disease, Malnutrition S/p G-Tube Placement Plan: She is fairly stable Resume NH diet IV Hydration DVT/GI Prophylaxis: SCDs and oral PPID Fall Precautions Anticoagulation is contraindicated due to recent biopsy and Hgb further down to 8.[address] Guerra following SW/CM for D/c planning Code Status: DNR/DNI Additional orders as above
--- NOTE | 2019-04-29 09:03 | PCM48HPAN ---
Post Anesthesia Note - EVALUATION WITHIN 48HRS OF ANESTHETIC Vital Signs in Normal Range: Yes Patient Participated in Evaluation: Yes Respiratory Function Stable: Yes Airway Patent: Yes Cardiovascular Function Stable: Yes Hydration Status Stable: Yes Pain Control Satisfactory: Yes Nausea and Vomiting Control Satisfactory: Yes Mental Status Recovered: Yes Vital Signs: Last Vital Signs Temp 37.0 C 04/29/19 08:53 Pulse 113 H 04/29/19 08:53 Resp 24 H 04/29/19 08:53 BP 126/58 L 04/29/19 08:53 Pulse Ox 92 L 04/29/19 08:53 Orthostatic Blood Pressure [ 111/60 Standing] Orthostatic Blood Pressure [ 139/68 Supine]
[2019-04-29] MEDS: Potassium Chloride 10% 20 MEQ/15 ML Soln 15 ML UD Cup PO SCH (09:35)
[2019-04-29] MEDS: Metoprolol Tartrate 100 MG Tab PO SCH ×2 (09:35→21:02)
[2019-04-29] MEDS: Multivitamins,Therapeutic Tab PO SCH (09:36)
[2019-04-29] MEDS: Diltiazem IR 60 MG Tab PO SCH ×3 (09:36→21:01)
[2019-04-29] MEDS: Furosemide 40 MG Tab PO SCH (09:36)
[2019-04-29] MEDS: Cholecalciferol (Vitamin D3) 25 MCG Tab PO SCH ×2 (09:36→21:01)
[2019-04-29] MEDS: Pantoprazole 40 MG Vial IVPUSH SCH (09:36)
[2019-04-29] MEDS: Hydrocortisone 1% Crm 30 GM Tube TOP SCH ×3 (12:07→21:15)
[2019-04-29] MEDS: Ondansetron 4 MG/2 ML SDV IV PRN ×2 (12:07→19:26)
--- NOTE | 2019-04-29 12:43 | PCM.SN ---
- Free Text/Narrative Note: Rapid response was activated for this patient. She had had syncopal episode white she was in the bathroom. At the time I get to her, her vitals were stable and she was alert, awake and talking. Stat troponin, ckmb, d-dimer, ekg, chext - xay ad head ct scan.
--- NOTE | 2019-04-29 13:47 | CR ---
Chest: AP view of the chest was obtained. Comparison: Previous chest x-ray of 04/28/19. Parenchymal density is noted overlying the left cardiac margin. Lung markings are mildly increased most of which appear to be chronic. Heart is slightly enlarged. Mediastinum is normal. Bony structures are grossly intact. Impression: 1. Parenchymal change within the left base most likely representing area of pneumonia. 2. Cardiomegaly. 3. Central lung markings increased which appear fairly stable from previous exam. Diagnostic code #3
--- NOTE | 2019-04-29 13:47 | CR ---
Abdomen: Supine view of the abdomen was obtained. Mild increased gas is noted within the colon most likely representing slight ileus. This does not appear to be obstructive. Degenerative change is scattered within the spine. Calcifications are seen within the pelvis compatible with phleboliths. Impression: 1. Slightly prominent gas within colon which does not appear obstructive and is most likely due to ileus. 2. Other findings believed to be incidental. Diagnostic code #2
--- NOTE | 2019-04-29 13:47 | CT ---
Head CT Technique: Multiple axial sections through the brain were obtained. Intravenous contrast was not utilized. Comparison: No prior intracranial imaging is available. Findings: Ventricles along with basal cisterns and sulci over the convexities are moderately prominent. Atrophy also includes the cerebellum. Atherosclerotic calcification is seen within the carotid siphon. Mild areas of diminished density noted within the periventricular white matter most likely representing mild small vessel ischemic demyelination change. No other abnormal parenchymal densities are seen. 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 Bone window settings were reviewed which show mild mucosal thickening within the right side of the sphenoid sinus. Other visualized sinuses are clear. Mastoid sinuses also are clear. No acute calvarial abnormality is seen. Impression: 1. Senescent change as noted above. 2. Incidental arachnoid cyst within the left temporal fossa which is felt to be developmental. 3. Nothing acute is seen on noncontrast head CT study. Diagnostic code #2
[2019-04-29] MEDS ORDERED: cefTRIAXone 1 GM in Sodium Chloride 0.9% 100 ML IV SCH (16:00)
[2019-04-29] MEDS ORDERED: Azithromycin 500 MG in Sodium Chloride 0.9% 250 ML IV SCH (17:00)
[2019-04-29] MEDS: Lactated Ringers 1,000 ML IV SCH (17:48)
[2019-04-29] MEDS ORDERED: Clopidogrel 75 MG Tab PO ONE (20:46)
[2019-04-29] MEDS ORDERED: Aspirin 81 MG Tab.Chew PO SCH (21:00)
[2019-04-29] MEDS: Simvastatin 10 MG Tab PO SCH (21:02)
[2019-04-29] MEDS: Pantoprazole 40 MG Tab.CR PO SCH (21:02)
[2019-04-30] MEDS: Diltiazem 50 MG/10 ML SDV IVPUSH PRN ×2 (06:57→07:55)
[2019-04-30] MEDS: Metoprolol Tartrate 5 MG/5 ML SDV IVPUSH PRN (07:52)
--- NOTE | 2019-04-30 08:38 | PCM.SN ---
- Free Text/Narrative Note: Called son Jefferson in [place] and updated him about mom's clinical progress and diagnoses. However as I was talking to him, his sister called back after I called and left a message for her earlier. After talking to Jefferson, I immediately reached out to Paula and informed her that her mother took a turn for the worse this morning. Myah is altered and now requiring 15L of O2 for adequate oxygenation. Informed her that the next step if she remains hypoxic will be CPAP /BiPAP but thereafter there is nothing else we could offer since she is DNI. I offered transfer to [place] but informed her that I could not guarantee they would do different than what we were doing here. I made it clear to her that Myah is not doing very well and encouraged them to come over to see her right away. Paula will speak to her brother Jefferson and will let us know what they want us to do next. Updated Dr. Celestin about the game plan as well as Kylie, Cork Molder. Overall prognosis is poor at this point.
[2019-04-30] MEDS ORDERED: Memantine 10 MG Tab PO SCH (09:00)
[2019-04-30] MEDS ORDERED: Clopidogrel 75 MG Tab PO SCH (09:00)
[2019-04-30] MEDS ORDERED: Aspirin 81 MG Tab.Chew GTUBE SCH (09:11)
[2019-04-30] MEDS ORDERED: Acetaminophen/HYDROcodone 325-5 MG Tab GTUBE PRN (09:11)
[2019-04-30] MEDS ORDERED: Acetaminophen 325 MG Tab GTUBE PRN (09:11)
[2019-04-30] MEDS ORDERED: Bisacodyl 5 MG Tab GTUBE PRN (09:12)
[2019-04-30] MEDS ORDERED: Cholecalciferol (Vitamin D3) 25 MCG Tab GTUBE SCH ×2 (09:12→09:30)
[2019-04-30] MEDS ORDERED: Diltiazem IR 60 MG Tab GTUBE SCH (09:13)
[2019-04-30] MEDS ORDERED: Docusate Sodium 100 MG Cap GTUBE PRN (09:13)
[2019-04-30] MEDS ORDERED: Clopidogrel 75 MG Tab GTUBE SCH ×2 (09:13→09:30)
[2019-04-30] MEDS ORDERED: Metoprolol Tartrate 100 MG Tab GTUBE SCH ×2 (09:14→09:30)
[2019-04-30] MEDS ORDERED: Furosemide 40 MG Tab GTUBE SCH ×2 (09:14→09:30)
[2019-04-30] MEDS ORDERED: Memantine 10 MG Tab GTUBE SCH ×2 (09:14→09:30)
[2019-04-30] MEDS ORDERED: Potassium Chloride 10% 20 MEQ/15 ML Soln 15 ML UD Cup GTUBE SCH ×2 (09:15→09:30)
[2019-04-30] MEDS ORDERED: Simvastatin 10 MG Tab GTUBE SCH (09:16)
--- NOTE | 2019-04-30 09:57 | CR ---
Chest: Portable view of the chest was obtained. Comparison: Prior chest x-ray of 04/29/19. Small bilateral pleural effusions are noted. Pulmonary vessels are felt to be congested. Mild bibasilar atelectasis is seen. Bony structures are grossly intact. Impression: 1. Findings felt compatible with CHF which is worsening from previous study. Diagnostic code #3
[2019-04-30] MEDS: Diltiazem IR 60 MG Tab GTUBE SCH ×2 (10:10→16:33)
[2019-04-30] MEDS: Multivitamins,Therapeutic Tab PO SCH (10:23)
[2019-04-30] MEDS: Hydrocortisone 1% Crm 30 GM Tube TOP SCH ×2 (10:25→16:33)
[2019-04-30] MEDS ORDERED: Ranitidine 15 MG/ML Syrup 10 ML UD Cup GTUBE SCH (12:00)
[2019-04-30] MEDS ORDERED: Furosemide 40 MG/4 ML VIAL IVPUSH ONE (13:02)
[2019-04-30] MEDS ORDERED: Furosemide 40 MG/4 ML VIAL IVPUSH STA (13:15)
[2019-04-30] MEDS: Diltiazem IR 60 MG Tab PO SCH (13:34)
[2019-04-30] MEDS: Metoprolol Tartrate 100 MG Tab PO SCH (13:35)
[2019-04-30] MEDS: Potassium Chloride 10% 20 MEQ/15 ML Soln 15 ML UD Cup PO SCH (13:35)
[2019-04-30] MEDS: Pantoprazole 40 MG Tab.CR PO SCH (13:35)
[2019-04-30] MEDS: Furosemide 40 MG Tab PO SCH (13:35)
[2019-04-30] MEDS: Cholecalciferol (Vitamin D3) 25 MCG Tab PO SCH (13:36)
[2019-04-30] MEDS ORDERED: Morphine 2 MG/ML Syringe IVPUSH PRN (14:44)
--- NOTE | 2019-04-30 16:13 | PCM.PN ---
- General Info Date of Service: 04/30/19 Admission Dx/Problem (Free Text): Admission Diagnosis/Problem Admission Diagnosis/Problem Rectal hemorrhage Subjective Update: Patient has had continued worsening of condition today. She was on [address] moreau not as earlier phone call with the family. We did have to start her on BiPAP and her pulse ox continued to be in the low 70s. Patient was given Lasix 80 mg IV secondary to worsening CHF on chest x-ray. She continued to worsen and her son Jefferson Kline did come to her bedside. Patient is no longer responsive to oral commands. She does withdraw to pain. She has increased respiratory rate and effort. Her son, Jefferson Kline, is her DURABLE POWER OF MILLER APPRENTICE and at his request he would like her to be comfort care. - Review of Systems General: Reports: Other (Patient is noncommunicative so review of systems was not obtained.) - Patient Data Vitals - Most Recent: Last Vital Signs Temp 97.9 F 04/30/19 11:18 Pulse 96 04/30/19 11:18 Resp 30 H 04/30/19 11:18 BP 136/49 L 04/30/19 11:18 Pulse Ox 72 L 04/30/19 13:28 Orthostatic Blood Pressure [ 111/60 Standing] Orthostatic Blood Pressure [ 139/68 Supine] Weight - Most Recent: 143 lb I&O - Last 24 Hours: Intake & Output 04/30/19 04/30/19 04/30/19 06:59 14:59 22:59 Intake Total 700 Output Total 500 Balance 200 Lab Results Last 24 Hours: Laboratory Results - last 24 hr 04/29/19 04/30/19 04/30/19 Range/Units 17:29 05:14 05:14 WBC (3.98-10.04) K/mm3 RBC (3.98-5.22) M/mm3 Hgb (11.2-15.7) gm/dl Hct (34.1-44.9) % MCV (79.4-94.8) fl MCH (25.6-32.2) pg MCHC (32.2-35.5) g/dl RDW Std Deviation (36.4-46.3) fL Plt Count (182-369) K/mm3 MPV (9.4-12.3) fl Neut % (Auto) (34.0-71.1) % Lymph % (Auto) (19.3-51.7) % [place] % (Auto) (4.7-12.5) % Eos % (Auto) (0.7-5.8) Baso % (Auto) (0.1-1.2) % Neut # (Auto) (1.56-6.13) K/mm3 Lymph # (Auto) (1.18-3.74) K/mm3 [place]aden # (Auto) (0.24-0.36) K/mm3 Eos # (Auto) (0.04-0.36) K/mm3 Baso # (Auto) (0.01-0.08) K/mm3 Manual Slide Review Sodium 142 (136-145) mEq/L Potassium 4.1 (3.5-5.1) mEq/L Chloride 102 (98-107) mEq/L Carbon Dioxide 35 H (21-32) mEq/L Anion Gap 9.1 (5-15) BUN 23 H (7-18) mg/dL Creatinine 1.2 H (0.55-1.02) mg/dL Est Cr Clr Drug Dosing 25.96 mL/min Estimated GFR (MDRD) 43 (>60) mL/min BUN/Creatinine Ratio 19.2 H (14-18) Glucose 200 H (83-115) mg/dL Calcium 9.1 (8.5-10.1) mg/dL Magnesium 2.1 (1.8-2.4) mg/dl Iron 20 L (50-170) ug/dL TIBC 329 (100-400) ug/dL % Saturation 6 L (20-55) % Transferrin 263 (202-364) mg/dL CK-MB (CK-2) 2.8 (0-3.6) ng/ml Troponin I 0.271 H* (0.00-0.056) ng/mL C-Reactive Protein 11.3 H* (<1.0) mg/dL Triglycerides 100 (<150) mg/dL Cholesterol 201 H (<200) mg/dL LDL Cholesterol Direct 114 H* (<100) mg/dL HDL Cholesterol 62.0 H (40-59) mg/dL Free T4 1.53 H (0.76-1.46) ng/dL TSH 3rd Generation 0.835 (0.358-3.74) uIU/mL 04/30/19 Range/Units 05:14 WBC 18.07 H (3.98-10.04) K/mm3 RBC 3.28 L (3.98-5.22) M/mm3 Hgb 8.4 L (11.2-15.7) gm/dl Hct 30.9 L (34.1-44.9) % MCV 94.2 (79.4-94.8) fl MCH 25.6 (25.6-32.2) pg MCHC 27.2 L (32.2-35.5) g/dl RDW Std Deviation 58.4 H (36.4-46.3) fL Plt Count 334 D (182-369) K/mm3 MPV 11.0 (9.4-12.3) fl Neut % (Auto) 83.3 H (34.0-71.1) % Lymph % (Auto) 10.7 L (19.3-51.7) % Bladen % (Auto) 4.3 L (4.7-12.5) % Eos % (Auto) 0.1 L (0.7-5.8) Baso % (Auto) 0.2 (0.1-1.2) % Neut # (Auto) 15.05 H (1.56-6.13) K/mm3 Lymph # (Auto) 1.93 (1.18-3.74) K/mm3 [place]aden # (Auto) 0.77 H (0.24-0.36) K/mm3 Eos # (Auto) 0.02 L (0.04-0.36) K/mm3 Baso # (Auto) 0.04 (0.01-0.08) K/mm3 Manual Slide Review Abnormal smear Sodium (136-145) mEq/L Potassium (3.5-5.1) mEq/L Chloride (98-107) mEq/L Carbon Dioxide (21-32) mEq/L Anion Gap (5-15) BUN (7-18) mg/dL Creatinine (0.55-1.02) mg/dL Est Cr Clr Drug Dosing mL/min Estimated GFR (MDRD) (>60) mL/min BUN/Creatinine Ratio (14-18) Glucose (83-115) mg/dL Calcium (8.5-10.1) mg/dL Magnesium (1.8-2.4) mg/dl Iron (50-170) ug/dL TIBC (100-400) ug/dL % Saturation (20-55) % Transferrin (202-364) mg/dL CK-MB (CK-2) (0-3.6) ng/ml Troponin I (0.00-0.056) ng/mL C-Reactive Protein (<1.0) mg/dL Triglycerides (<150) mg/dL Cholesterol (<200) mg/dL LDL Cholesterol Direct (<100) mg/dL HDL Cholesterol (40-59) mg/dL Free T4 (0.76-1.46) ng/dL TSH 3rd Generation (0.358-3.74) uIU/mL Med Orders - Current: Current Medications Acetaminophen (Tylenol) 650 mg GTUBE Q4H PRN PRN Reason: Pain (Mild 1-3)/fever Hydrocodone Bitart/Acetaminophen ([place] 325-5 Mg) 1 tab GTUBE Q4H PRN PRN Reason: Pain (moderate 4-6) Albuterol (Proventil Hfa) 0 gm INH Q6H PRN PRN Reason: Shortness of Breath Albuterol/Ipratropium (Duoneb 3.0-0.5 Mg/3 Ml) 3 ml NEB Q4H PRN PRN Reason: Shortness Of Breath/wheezing Last Admin: 04/30/19 13:28 Dose: 3 ml Bisacodyl (Dulcolax) 5 mg GTUBE DAILY PRN PRN Reason: Constipation Diltiazem HCl (Cardizem) 10 mg IVPUSH Q4H PRN PRN Reason: Tachycardia Last Admin: 04/30/19 07:55 Dose: 10 mg Docusate Sodium (Colace) 100 mg GTUBE BID PRN PRN Reason: Constipation Promethazine HCl 6.25 mg/ (Sodium Chloride) 50.25 mls @ 100 mls/hr IV Q6H PRN PRN Reason: Nausea/Vomiting Metoprolol Tartrate (Lopressor) 5 mg IVPUSH Q4H PRN PRN Reason: Tachycardia Last Admin: 04/30/19 07:52 Dose: 5 mg Morphine Sulfate (Morphine) 1 mg IVPUSH Q1H PRN PRN Reason: Pain/comfort Ondansetron HCl (Zofran) 4 mg IV Q6H PRN PRN Reason: Nausea/Vomiting Last Admin: 04/29/19 19:26 Dose: 4 mg Polyethylene Glycol (Miralax) 17 gm PO DAILY PRN PRN Reason: Constipation Senna/Docusate Sodium (Senna Plus) 1 tab GTUBE BID PRN PRN Reason: Constipation Sodium Chloride (Saline Flush) 10 ml FLUSH ASDIRECTED PRN PRN Reason: Keep Vein Open Last Admin: 04/27/19 01:39 Dose: 10 ml Discontinued Medications Acetaminophen (Tylenol) 650 mg PO Q4H PRN PRN Reason: Pain (Mild 1-3)/fever Hydrocodone Bitart/Acetaminophen ([place] 325-5 Mg) 1 tab PO Q4H PRN PRN Reason: Pain (moderate 4-6) Aspirin (Aspirin) 81 mg PO BEDTIME [facility] Last Admin: 04/29/19 21:01 Dose: 81 mg Aspirin (Aspirin) 81 mg GTUBE BEDTIME [facility] Bisacodyl (Dulcolax) 5 mg PO DAILY PRN PRN Reason: Constipation Cholecalciferol (Vitamin D3) 25 mcg PO BID [facility] Last Admin: 04/30/19 13:36 Dose: Not Given Cholecalciferol (Vitamin D3) 25 mcg GTUBE BID [facility] Cholecalciferol (Vitamin D3) 25 mcg GTUBE BID [facility] Last Admin: 04/30/19 10:19 Dose: 25 mcg Clopidogrel Bisulfate (Plavix) 300 mg PO ONETIME ONE Stop: 04/29/19 20:47 Last Admin: 04/29/19 21:01 Dose: 300 mg Clopidogrel Bisulfate (Plavix) 75 mg PO DAILY [facility] Last Admin: 04/30/19 13:35 Dose: Not Given Clopidogrel Bisulfate (Plavix) 75 mg GTUBE DAILY [facility] Clopidogrel Bisulfate (Plavix) 75 mg GTUBE DAILY [facility] Last Admin: 04/30/19 10:16 Dose: 75 mg Diltiazem HCl (Cardizem) 60 mg PO TID [facility] Last Admin: 04/30/19 13:34 Dose: Not Given Diltiazem HCl (Cardizem) 60 mg GTUBE TID [facility] Diltiazem HCl (Cardizem) 60 mg GTUBE TID [facility] Last Admin: 04/30/19 10:10 Dose: 60 mg Docusate Sodium (Colace) 100 mg PO BID PRN PRN Reason: Constipation Ephedrine Sulfate (Ephedrine In Ns) Confirm Administered Dose 25 mg .ROUTE .STK- MED ONE Stop: 04/28/19 15:40 Ephedrine Sulfate (Ephedrine In Ns) Confirm Administered Dose 25 mg .ROUTE .STK- MED ONE Stop: 04/28/19 16:28 Fentanyl (Sublimaze) Confirm Administered Dose 250 mcg .ROUTE .STK-MED ONE Stop: 04/28/19 14:47 Furosemide (Lasix) 40 mg PO DAILY [facility] Last Admin: 04/30/19 13:35 Dose: Not Given Furosemide (Lasix) 40 mg GTUBE DAILY [facility] Furosemide (Lasix) 40 mg GTUBE DAILY [facility] Last Admin: 04/30/19 10:21 Dose: 40 mg Furosemide (Lasix) 40 mg IVPUSH NOW ONE Stop: 04/30/19 13:03 Last Admin: 04/30/19 13:10 Dose: 40 mg Furosemide (Lasix) 40 mg IVPUSH NOW STA Stop: 04/30/19 13:16 Last Admin: 04/30/19 13:32 Dose: 40 mg Hydrocortisone (Hydrocortisone 1% Crm) 0 gm TOP TID [facility]IA Last Admin: 04/30/19 10:25 Dose: 1 applic Lactated Ringer's (Ringers, Lactated) 1,000 mls @ 50 mls/hr IV ASDIRECTED ANIA Last Admin: 04/29/19 17:48 Dose: 50 mls/hr Pantoprazole Sodium 40 mg/ (Sodium Chloride) 100 mls @ 200 mls/hr IV ONETIME ONE Stop: 04/27/19 03:19 Last Admin: 04/27/19 03:00 Dose: 200 mls/hr Sodium Chloride (Normal Saline) Confirm Administered Dose 250 mls @ as directed .ROUTE .STK-MED ONE Stop: 04/27/19 11:27 Last Admin: 04/27/19 14:19 Dose: 100 mls/hr Sodium Chloride (Normal Saline) 250 mls @ 30 mls/hr IV ASDIRECTED ANIA Last Admin: 04/27/19 22:24 Dose: 30 mls/hr Sodium Chloride (Normal Saline) Confirm Administered Dose 250 mls @ as directed .ROUTE .ST-MED ONE Stop: 04/27/19 22:10 Last Admin: 04/28/19 00:26 Dose: Not Given Lidocaine HCl (Xylocaine-Mpf 1%) Confirm Administered Dose 4 mls @ as directed .ROUTE .K-MED ONE Stop: 04/28/19 14:47 Lactated Ringer's (Ringers, Lactated) Confirm Administered Dose 1,000 mls @ as directed .ROUTE .STK-MED ONE Stop: 04/28/19 15:44 Azithromycin 500 mg/ Sodium (Chloride) 250 mls @ 250 mls/hr IV Q24H [facility] Last Admin: 04/29/19 17:47 Dose: 250 mls/hr Ceftriaxone Sodium 1 gm/ (Sodium Chloride) 100 mls @ 200 mls/hr IV Q24H [facility] Last Admin: 04/29/19 16:23 Dose: 200 mls/hr Memantine (Namenda) 10 mg PO BID [facility] Last Admin: 04/30/19 13:35 Dose: Not Given Memantine (Namenda) 10 mg GTUBE BID [facility] Memantine (Namenda) 10 mg GTUBE BID [facility] Last Admin: 04/30/19 10:14 Dose: 10 mg Metoprolol Tartrate (Lopressor) 150 mg PO BID [facility] Last Admin: 04/30/19 13:35 Dose: Not Given Metoprolol Tartrate (Lopressor) Confirm Administered Dose 5 mg .ROUTE .[facility] ONE Stop: 04/28/19 14:51 Metoprolol Tartrate (Lopressor) 150 mg GTUBE BID [facility] Metoprolol Tartrate (Lopressor) 150 mg GTUBE BID [facility] Last Admin: 04/30/19 10:03 Dose: 150 mg Multivitamins (Thera) 1 each PO DAILY [facility] Last Admin: 04/30/19 10:23 Dose: 1 each Nitroglycerin (Nitrostat) 0.4 mg SL ONETIME ONE Stop: 04/28/19 09:20 Last Admin: 04/28/19 09:35 Dose: 0.4 mg Pantoprazole Sodium (Protonix Iv) 40 mg IVPUSH ONETIME ONE Stop: 04/27/19 07:01 Last Admin: 04/27/19 06:16 Dose: 40 mg Pantoprazole Sodium (Protonix) 40 mg PO DAILY [facility] Last Admin: 04/27/19 14:18 Dose: Not Given Pantoprazole Sodium (Protonix Iv) 40 mg IV Q12HR [facility] Pantoprazole Sodium (Protonix Iv) 40 mg IVPUSH Q12H [facility] Last Admin: 04/29/19 09:36 Dose: 40 mg Pantoprazole Sodium (Protonix) 40 mg PO BID [facility] Last Admin: 04/30/19 13:35 Dose: Not Given Phenylephrine HCl (Phenylephrine In Ns 100 Mcg/Ml) Confirm Administered Dose 1 mg .ROUTE .STK-MED ONE Stop: 04/28/19 15:43 Phenylephrine HCl (Phenylephrine In Ns 100 Mcg/Ml) Confirm Administered Dose 1 mg .ROUTE .STK-MED ONE Stop: 04/28/19 16:40 Phytonadione (Aquamephyton) 5 mg PO ONETIME ONE Stop: 04/27/19 02:30 Last Admin: 04/27/19 02:51 Dose: 5 mg Polyethylene Glycol/Electrolytes (Golytely) 4,000 ml PO ONETIME ONE Stop: 04/28/19 00:01 Last Admin: 04/27/19 23:50 Dose: 1 bottle Potassium Chloride (Potassium Chloride Solution) 10 meq PO DAILY [facility] Last Admin: 04/30/19 13:35 Dose: Not Given Potassium Chloride (Potassium Chloride Solution) 10 meq GTUBE DAILY [facility] Potassium Chloride (Potassium Chloride Solution) 10 meq GTUBE DAILY [facility] Last Admin: 04/30/19 10:24 Dose: 10 meq Propofol (Diprivan 20 Ml) Confirm Administered Dose 200 mg .ROUTE .STK-MED ONE Stop: 04/28/19 14:47 Ranitidine HCl (Zantac) 75 mg GTUBE DAILY [facility] Last Admin: 04/30/19 12:39 Dose: 75 mg Rocuronium [place] (Zemuron) Confirm Administered Dose 50 mg .ROUTE .STK-MED ONE Stop: 04/28/19 14:47 Senna/Docusate Sodium (Senna Plus) 1 tab PO BID PRN PRN Reason: Constipation Simvastatin (Zocor) 10 mg PO BEDTIME [facility] Last Admin: 04/29/19 21:02 Dose: 10 mg Simvastatin (Zocor) 10 mg GTUBE BEDTIME [facility] - Exam Quality Assessment: Supplemental Oxygen (BiPAP) General: Severe Distress, Obtunded Lungs: Decreased Breath Sounds, Rales, Rhonchi Cardiovascular: Irregular Rhythm GI/Abdominal Exam: Soft, Non-Tender, Distended. No: Normal Bowel Sounds (Faint) Skin: Cool - Problem List Review Problem List Initiated/Reviewed/Updated: Yes - My Orders Last 24 Hours: My Active Orders 04/30/19 14:44 Morphine 1 mg IVPUSH Q1H PRN Resuscitation Status Routine - Plan Plan:: Assessment: 04/30/2019 Patient is in multiorgan failure. It appears she has fulminant pulmonary edema with worsening respiratory failure. She developed a non-STEMI yesterday and it appears to have precipitated decompensated CHF. She also has increasing white count which appears to secondary to community acquired pneumonia versus aspiration pneumonia. Patient's hemoglobin has stabilized at 8.0. There is nothing else that we can do for her other than comfort care at this time. Her wishes to be not resuscitated or intubated and therefore we will honor those wishes. Her son has also expressed that his mother would not want further aggressive care. She will be converted to comfort care only, stop BiPAP and medications not necessary for her comfort, and start morphine 1 mg every hour when necessary respiratory distress. We will not do any more lab draws and keep her as comfortable as possible. 04/29/2019 Acute: Rectal Bleeding - Started a couple of days ago - Had multiple episodes yesterday - No hx/o hematemesis, GI Bleed in the past, Hemorrhoids or Diverticulosis - No endoscopy in the past--> patient is a poor historian - Last GI Bleed: this morning with maroon colored stool - On Warfarin due to PAFIB; still off anticoagulation per general surgery's recommendation - Hgb is 11.6-->8.4-->8.9-->8.6-->8.0 grams - INR is 2.10 and was given low dose of Vit K in ED - Hold warfarin and consult general surgery - No rectal bleeding overnight - Iron Panel in AM - Routine AM labs Bronchitis/Early Pneumonia - She is mostly bend bound - Jack a temp last night as high as 38.5 C - Consider IV Antibiotics - Sputum Culture and IS as directed - Serial CXR as indicated Sinus Tachycardia - Carries a hx/o atrial fibrillation - HR is 120s-130s - EKGs show sinus tachycardia - On Cardizem 60 mg po TID plus Metoprolol Tartrate 150 mg po BID - Thyroid Panel and will add PRN IVP Cardizem 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 Guerra's Note - S/p EGD/Colonoscopy - Not able to pass pediatric colonoscopy - The mass is concerning for malignancy but will await pathology results - Patient's POA updated - Advised Dr. Lucas to inform PCP about the abnormal finding as noted above S/p Mild Renal Insufficiency - At baseline - BUN of 45 and Cr of 1.1-->1.0 - Likely from rectal bleed - Monitor S/p Chest Pain - Complaints of chest pain with radiation to OPTIMIZATION MANAGER but localized when I went back and re-examined her - Troponin, D-Dimer, and CKMB: both wnl - EKG shows sinus tachycardia with LB3--> Previous EKG from her PCP's office showed LB3 (not new) - CXR report read as mild bronchitis - IS as directed Chronic: HTN, HLD, PVD, COPD, PAFIB, GERD, CHERELLE, Alzheimer's Disease, Malnutrition S/p G-Tube Placement Plan: Comfort Care Length of stay greater than 96 hours secondary to acute myocardial infarction and significant worsening of condition.
[2019-04-30] MEDS: LORazepam 2 MG/ML SDV IVPUSH PRN ×2 (20:14→23:17)
[2019-05-01] MEDS: LORazepam 2 MG/ML SDV IVPUSH PRN ×2 (01:23→03:20)
--- NOTE | 2019-05-01 12:14 | PCM.DCSUM1 ---
Discharge Summary - Hospital Course HPI Initial Comments: This is an 83 yo elderly white female with past medical hx/o HTN, HLD, PVD, COPD , GERD, Alzheimer's Disease, and Malnutrition S/p G-Tube Placement who came in to ED last night due to 2 day hx/o GI bleed. She has had multiple episode of rectal bleeding yesterday. Per secondary sources, she has no associated symptoms. She denies any hx/o hemorrhoids, diverticulosis or GI bleed in the past. She denies having been scope in the past. She carries a hx/o CHERELLE and she takes Warfarin for atrial fibrillation. Patient is a poor historian. HPI was obtained from combination of multiple sources. Her initial work up in ED last night showed a CBC remarkable for WBC of 12.97, MCHC of 29.9, RDW of 54.5, Neutrophils of 79% and Lymphocytes of 15.2%. Her INR was 2.10. Her Chemistry was significant for CO2 of 36, BUN of 45, Cr of 1.1, Alk Phos of 135, and Albumin of 2.8. She was admitted overnight for further work up of GI Bleed. Diagnosis: Stroke: No - Discharge Data Discharge Date: 05/01/19 Discharge Disposition: 20 Condition: Critical - Referral to Home Health Primary Care Physician: Dakota Huertas MD - Patient Summary/Data Operative Procedure(s) Performed: Colonoscopy and Egd Consults: Consultations 04/27/19 08:39 Consult to Physician [CONS] Routine 04/27/19 08:45 Consult to Spiritual Care [CONS] Routine OT Evaluation and Treatment [CONS] Routine PT Evaluation and Treatment [CONS] Routine Hospital Course: Hospital course was complicated secondary to her age and multiple comorbidities. She was admitted with rectal bleeding and was on warfarin. She was given low-dose vitamin K in the emergency room and general surgery did a colonoscopy finding a large mass on colonoscopy. This mass was concerning for malignancy. Patient she was also treated for orchitis versus pneumonia and even during optimization of concern for aspiration pneumonia. She did have episodes of chest pain, but on April 29, 2019 a rapid response activated secondary to a syncopal episode. Troponins were ordered and were positive. She was diagnosed with type II myocardial infarction, but because of her GI bleed was treated with aspirin and Plavix. She was not a candidate for heparin or Lovenox. Patient developed pulmonary edema and had increasing need for FiO2. O2 requirements increased and she was placed on BiPAP. She was unable to maintain oxygen saturations above the 70s on BiPAP. Her son arrived shortly after she was placed on BiPAP and it was felt that she would want to be kept comfortable. Patient was made comfort care only and she this morning. - Discharge Plan *PRESCRIPTION DRUG MONITORING PROGRAM REVIEWED*: Not Applicable *COPY OF PRESCRIPTION DRUG MONITORING REPORT IN PATIENT CARLOS: Not Applicable Home Medications: Home Meds Albuterol [Ventolin HFA] 2 puff INH Q6H 04/27/19 [History] Cholecalciferol (Vitamin D3) [Vitamin D3] 1,000 unit PO BID 04/27/19 [History] Diltiazem HCl [Cardizem] 60 mg PO TID 04/27/19 [History] Furosemide [Lasix] 40 mg PO DAILY 04/27/19 [History] Lactose-Reduced Food/Fiber [Isosource 1.5 [place] Tube Feed] 04/27/19 [History] Memantine [Namenda] 10 mg PO BID 04/27/19 [History] Metoprolol Tartrate 1.5 tab PO BID 04/27/19 [History] Multivitamin [Daily Multiple Vitamin] 1 each PO DAILY 04/27/19 [History] Omeprazole 20 mg PO DAILY 04/27/19 [History] Potassium Chloride [Potassium Chloride Solution] 10 meq PO DAILY 04/27/19 [ History] Pravastatin [Pravachol] 20 mg PO BEDTIME 04/27/19 [History] Warfarin [Coumadin] 1.25 mg PO ASDIRECTED 04/27/19 [History] Warfarin [Coumadin] 2.5 mg PO ASDIRECTED 04/27/19 [History] Patient Handouts: Colon Polyps, Ileus, Heart Attack, Rectal Bleeding, Easy-to- Read Forms: ED Department Discharge Referrals: Dakota Huertas MD [Primary Care Provider] - David Guerra MD [Physician] - (follow up with him in 2 weeks to discuss pathology results,family should be with patient) - Discharge Summary/Plan Comment DC Time >30 min.: Yes Discharge Summary/Plan Comment: I was called at 347 this morning and had at 342. - Patient Data Vitals - Most Recent: Last Vital Signs Temp 97.9 F 04/30/19 11:18 Pulse 92 04/30/19 14:32 Resp 32 H 04/30/19 13:09 BP 117/59 L 04/30/19 14:32 Pulse Ox 79 L 04/30/19 23:40 Orthostatic Blood Pressure [ 111/60 Standing] Orthostatic Blood Pressure [ 139/68 Supine] Weight - Most Recent: 143 lb I&O - Last 24 hours: Intake & Output 04/30/19 05/01/19 05/01/19 22:59 06:59 14:59 Intake Total 303 Output Total 100 Balance 203 Med Orders - Current: Current Medications Acetaminophen (Tylenol) 650 mg GTUBE Q4H PRN PRN Reason: Pain (Mild 1-3)/fever Hydrocodone Bitart/Acetaminophen ([place] 325-5 Mg) 1 tab GTUBE Q4H PRN PRN Reason: Pain (moderate 4-6) Albuterol (Proventil Hfa) 0 gm INH Q6H PRN PRN Reason: Shortness of Breath Albuterol/Ipratropium (Duoneb 3.0-0.5 Mg/3 Ml) 3 ml NEB Q4H PRN PRN Reason: Shortness Of Breath/wheezing Last Admin: 04/30/19 13:28 Dose: 3 ml Bisacodyl (Dulcolax) 5 mg GTUBE DAILY PRN PRN Reason: Constipation Diltiazem HCl (Cardizem) 10 mg IVPUSH Q4H PRN PRN Reason: Tachycardia Last Admin: 04/30/19 07:55 Dose: 10 mg Docusate Sodium (Colace) 100 mg GTUBE BID PRN PRN Reason: Constipation Promethazine HCl 6.25 mg/ (Sodium Chloride) 50.25 mls @ 100 mls/hr IV Q6H PRN PRN Reason: Nausea/Vomiting Lorazepam (Ativan) 0.5 mg IVPUSH Q1H PRN PRN Reason: Anxiety Last Admin: 05/01/19 03:20 Dose: 0.5 mg Metoprolol Tartrate (Lopressor) 5 mg IVPUSH Q4H PRN PRN Reason: Tachycardia Last Admin: 04/30/19 07:52 Dose: 5 mg Morphine Sulfate (Morphine) 1 mg IVPUSH Q1H PRN PRN Reason: Pain/comfort Ondansetron HCl (Zofran) 4 mg IV Q6H PRN PRN Reason: Nausea/Vomiting Last Admin: 04/29/19 19:26 Dose: 4 mg Polyethylene Glycol (Miralax) 17 gm PO DAILY PRN PRN Reason: Constipation Senna/Docusate Sodium (Senna Plus) 1 tab GTUBE BID PRN PRN Reason: Constipation Sodium Chloride (Saline Flush) 10 ml FLUSH ASDIRECTED PRN PRN Reason: Keep Vein Open Last Admin: 04/27/19 01:39 Dose: 10 ml Discontinued Medications Acetaminophen (Tylenol) 650 mg PO Q4H PRN PRN Reason: Pain (Mild 1-3)/fever Hydrocodone Bitart/Acetaminophen ([place] 325-5 Mg) 1 tab PO Q4H PRN PRN Reason: Pain (moderate 4-6) Aspirin (Aspirin) 81 mg PO BEDTIME [facility] Last Admin: 04/29/19 21:01 Dose: 81 mg Aspirin (Aspirin) 81 mg GTUBE BEDTIME [facility] Bisacodyl (Dulcolax) 5 mg PO DAILY PRN PRN Reason: Constipation Cholecalciferol (Vitamin D3) 25 mcg PO BID [facility] Last Admin: 04/30/19 13:36 Dose: Not Given Cholecalciferol (Vitamin D3) 25 mcg GTUBE BID [facility] Cholecalciferol (Vitamin D3) 25 mcg GTUBE BID [facility] Last Admin: 04/30/19 10:19 Dose: 25 mcg Clopidogrel Bisulfate (Plavix) 300 mg PO ONETIME ONE Stop: 04/29/19 20:47 Last Admin: 04/29/19 21:01 Dose: 300 mg Clopidogrel Bisulfate (Plavix) 75 mg PO DAILY [facility] Last Admin: 04/30/19 13:35 Dose: Not Given Clopidogrel Bisulfate (Plavix) 75 mg GTUBE DAILY [facility] Clopidogrel Bisulfate (Plavix) 75 mg GTUBE DAILY [facility] Last Admin: 04/30/19 10:16 Dose: 75 mg Diltiazem HCl (Cardizem) 60 mg PO TID [facility] Last Admin: 04/30/19 13:34 Dose: Not Given Diltiazem HCl (Cardizem) 60 mg GTUBE TID [facility] Diltiazem HCl (Cardizem) 60 mg GTUBE TID [facility] Last Admin: 04/30/19 16:33 Dose: Not Given Docusate Sodium (Colace) 100 mg PO BID PRN PRN Reason: Constipation Ephedrine Sulfate (Ephedrine In Ns) Confirm Administered Dose 25 mg .ROUTE .STK- MED ONE Stop: 04/28/19 15:40 Ephedrine Sulfate (Ephedrine In Ns) Confirm Administered Dose 25 mg .ROUTE .STK- MED ONE Stop: 04/28/19 16:28 Fentanyl (Sublimaze) Confirm Administered Dose 250 mcg .ROUTE .STK-MED ONE Stop: 04/28/19 14:47 Furosemide (Lasix) 40 mg PO DAILY [facility] Last Admin: 04/30/19 13:35 Dose: Not Given Furosemide (Lasix) 40 mg GTUBE DAILY [facility] Furosemide (Lasix) 40 mg GTUBE DAILY [facility] Last Admin: 04/30/19 10:21 Dose: 40 mg Furosemide (Lasix) 40 mg IVPUSH NOW ONE Stop: 04/30/19 13:03 Last Admin: 04/30/19 13:10 Dose: 40 mg Furosemide (Lasix) 40 mg IVPUSH NOW STA Stop: 04/30/19 13:16 Last Admin: 04/30/19 13:32 Dose: 40 mg Hydrocortisone (Hydrocortisone 1% Crm) 0 gm TOP TID [facility] Last Admin: 04/30/19 16:33 Dose: Not Given Lactated Ringer's (Ringers, Lactated) 1,000 mls @ 50 mls/hr IV ASDIRECTED [facility] Last Admin: 04/29/19 17:48 Dose: 50 mls/hr Pantoprazole Sodium 40 mg/ (Sodium Chloride) 100 mls @ 200 mls/hr IV ONETIME ONE Stop: 04/27/19 03:19 Last Admin: 04/27/19 03:00 Dose: 200 mls/hr Sodium Chloride (Normal Saline) Confirm Administered Dose 250 mls @ as directed .ROUTE .STK-MED ONE Stop: 04/27/19 11:27 Last Admin: 04/27/19 14:19 Dose: 100 mls/hr Sodium Chloride (Normal Saline) 250 mls @ 30 mls/hr IV ASDIRECTED [facility] Last Admin: 04/27/19 22:24 Dose: 30 mls/hr Sodium Chloride (Normal Saline) Confirm Administered Dose 250 mls @ as directed .ROUTE .ST-MED ONE Stop: 04/27/19 22:10 Last Admin: 04/28/19 00:26 Dose: Not Given Lidocaine HCl (Xylocaine-Mpf 1%) Confirm Administered Dose 4 mls @ as directed .ROUTE .K-MED ONE Stop: 04/28/19 14:47 Lactated Ringer's (Ringers, Lactated) Confirm Administered Dose 1,000 mls @ as directed .ROUTE .STK-MED ONE Stop: 04/28/19 15:44 Azithromycin 500 mg/ Sodium (Chloride) 250 mls @ 250 mls/hr IV Q24H [facility] Last Admin: 04/29/19 17:47 Dose: 250 mls/hr Ceftriaxone Sodium 1 gm/ (Sodium Chloride) 100 mls @ 200 mls/hr IV Q24H [facility] Last Admin: 04/29/19 16:23 Dose: 200 mls/hr Memantine (Namenda) 10 mg PO BID [facility] Last Admin: 04/30/19 13:35 Dose: Not Given Memantine (Namenda) 10 mg GTUBE BID [facility] Memantine (Namenda) 10 mg GTUBE BID [facility] Last Admin: 04/30/19 10:14 Dose: 10 mg Metoprolol Tartrate (Lopressor) 150 mg PO BID [facility] Last Admin: 04/30/19 13:35 Dose: Not Given Metoprolol Tartrate (Lopressor) Confirm Administered Dose 5 mg .ROUTE .[facility] ONE Stop: 04/28/19 14:51 Metoprolol Tartrate (Lopressor) 150 mg GTUBE BID [facility] Metoprolol Tartrate (Lopressor) 150 mg GTUBE BID [facility] Last Admin: 04/30/19 10:03 Dose: 150 mg Multivitamins (Thera) 1 each PO DAILY [facility] Last Admin: 04/30/19 10:23 Dose: 1 each Nitroglycerin (Nitrostat) 0.4 mg SL ONETIME ONE Stop: 04/28/19 09:20 Last Admin: 04/28/19 09:35 Dose: 0.4 mg Pantoprazole Sodium (Protonix Iv) 40 mg IVPUSH ONETIME ONE Stop: 04/27/19 07:01 Last Admin: 04/27/19 06:16 Dose: 40 mg Pantoprazole Sodium (Protonix) 40 mg PO DAILY [facility] Last Admin: 04/27/19 14:18 Dose: Not Given Pantoprazole Sodium (Protonix Iv) 40 mg IV Q12HR [facility] Pantoprazole Sodium (Protonix Iv) 40 mg IVPUSH Q12H [facility] Last Admin: 04/29/19 09:36 Dose: 40 mg Pantoprazole Sodium (Protonix) 40 mg PO BID [facility] Last Admin: 04/30/19 13:35 Dose: Not Given Phenylephrine HCl (Phenylephrine In Ns 100 Mcg/Ml) Confirm Administered Dose 1 mg .ROUTE .STK-MED ONE Stop: 04/28/19 15:43 Phenylephrine HCl (Phenylephrine In Ns 100 Mcg/Ml) Confirm Administered Dose 1 mg .ROUTE .STK-MED ONE Stop: 04/28/19 16:40 Phytonadione (Aquamephyton) 5 mg PO ONETIME ONE Stop: 04/27/19 02:30 Last Admin: 04/27/19 02:51 Dose: 5 mg Polyethylene Glycol/Electrolytes (Golytely) 4,000 ml PO ONETIME ONE Stop: 04/28/19 00:01 Last Admin: 04/27/19 23:50 Dose: 1 bottle Potassium Chloride (Potassium Chloride Solution) 10 meq PO DAILY [facility] Last Admin: 04/30/19 13:35 Dose: Not Given Potassium Chloride (Potassium Chloride Solution) 10 meq GTUBE DAILY [facility] Potassium Chloride (Potassium Chloride Solution) 10 meq GTUBE DAILY [facility] Last Admin: 04/30/19 10:24 Dose: 10 meq Propofol (Diprivan 20 Ml) Confirm Administered Dose 200 mg .ROUTE .STK-MED ONE Stop: 04/28/19 14:47 Ranitidine HCl (Zantac) 75 mg GTUBE DAILY [facility] Last Admin: 04/30/19 12:39 Dose: 75 mg Rocuronium [place] (Zemuron) Confirm Administered Dose 50 mg .ROUTE .STK-MED ONE Stop: 04/28/19 14:47 Senna/Docusate Sodium (Senna Plus) 1 tab PO BID PRN PRN Reason: Constipation Simvastatin (Zocor) 10 mg PO BEDTIME [facility] Last Admin: 04/29/19 21:02 Dose: 10 mg Simvastatin (Zocor) 10 mg GTUBE BEDTIME [facility]
== END 2019-05-01 15:30 | disposition expired | DRG 377 ==
LOC: JD.ED 00:43 → JD.MS 03:07
PROVIDERS: ADMIT Internal Medicine; ATTEND Internal Medicine
PROC: 0DJ08ZZ Inspection of Upper Intestinal Tract, Via Natural or Artificial Opening Endoscopic (ICD-10-PCS; 2019-04-28)
PROC: 0DBP8ZX Excision of Rectum, Via Natural or Artificial Opening Endoscopic, Diagnostic (ICD-10-PCS; 2019-04-28)
PROC: 30233K1 Transfusion of Nonautologous Frozen Plasma into Peripheral Vein, Percutaneous Approach (ICD-10-PCS; 2019-04-28)
PROC: 5A09357 Assistance with Respiratory Ventilation, Less than 24 Consecutive Hours, Continuous Positive Airway Pressure (ICD-10-PCS; principal; 2019-04-30)
DX: K62.5 Hemorrhage of anus and rectum (principal); I48.91 Unspecified atrial fibrillation; J69.0 Pneumonitis due to inhalation of food and vomit; I10 Essential (primary) hypertension; I21.A1 Myocardial infarction type 2; E43 Unspecified severe protein-calorie malnutrition; J96.91 Respiratory failure, unspecified with hypoxia; I50.1 Left ventricular failure, unspecified; K62.1 Rectal polyp; Z51.5 Encounter for palliative care; Z66 Do not resuscitate; Z93.4 Other artificial openings of gastrointestinal tract status; K62.4 Stenosis of anus and rectum; I48.0 Paroxysmal atrial fibrillation; K63.89 Other specified diseases of intestine; I73.9 Peripheral vascular disease, unspecified; J44.9 Chronic obstructive pulmonary disease, unspecified; K21.9 Gastro-esophageal reflux disease without esophagitis; G30.9 Alzheimer's disease, unspecified; F02.80 Dementia in other diseases classified elsewhere, unspecified severity, without behavioral disturbance, psychotic disturbance, mood disturbance, and anxiety; E78.00 Pure hypercholesterolemia, unspecified; D50.9 Iron deficiency anemia, unspecified; N28.9 Disorder of kidney and ureter, unspecified; E78.5 Hyperlipidemia, unspecified; I11.0 Hypertensive heart disease with heart failure; R79.1 Abnormal coagulation profile; J40 Bronchitis, not specified as acute or chronic; K44.9 Diaphragmatic hernia without obstruction or gangrene; Z93.1 Gastrostomy status; Z79.01 Long term (current) use of anticoagulants; Z79.899 Other long term (current) drug therapy; Z90.721 Acquired absence of ovaries, unilateral; Z68.30 Body mass index [BMI] 30.0-30.9, adult
CPT/HCPCS: 36415; 80053; 85025; 85610; 86850; 86900; 86901; 93005; 96361; 96374; 99284; A9270; C9113; J7030; J7120; 00813; 36430; 70450; 70450-26; 71045; 71045-26; 74018; 74018-26; 80048; 80061; 82553; 83540; 83735; 84439; 84443; 84466; 84484; 85014; 85018; 85379; 86140; 87641; 88305; 93010; 94640; 94660; 94761; 97161-GP; 97165-GO; 97535-GO; 99283; J0456; J0696; J1940; J2001; J2060; J2370; J2405; J2704; J3010; J3490; J7050; J7620-GY; P9017